=== PATIENT | female | born 1940 | race Caucasian/White ===

== ENCOUNTER 2018-10-03 16:04 | Inpatient (IN) | payer MEDICARE, OTHER ==
[~2018-10-03] VITALS: Ht 157.5 cm; Wt 86.0 kg
[2018-10-03 17:30] VITALS: BP 143/63; PULSE 72; RESP 18
[2018-10-03 18:21] VITALS: Ht 157.5 cm; Wt 86.0 kg
[2018-10-03] MEDS ORDERED: PENDING SANTYL ORDER FOR WOUND CARE XX PRN (18:30)
[2018-10-03] MEDS ORDERED: traMADol 50 MG TAB PO PRN (19:30)
[2018-10-03] MEDS ORDERED: BISACODYL 10 MG SUPP PR PRN (19:30)
[2018-10-03 19:35] VITALS: BP_SYST 130; PULSE 77; RESP 18
[2018-10-03] MEDS: DOCUSATE SODIUM 100 MG CAP PO SCH (20:57)
[2018-10-03] MEDS: SENNA TAB PO SCH (20:57)
[2018-10-03] MEDS: FERROUS SULFATE (EC) 325 MG TAB PO SCH (20:57)
[2018-10-03] MEDS: METOPROLOL 25 MG TAB PO SCH (20:58)
[2018-10-04 02:51] VITALS: BP 150/70; PULSE 88; RESP 18
[2018-10-04 07:00] VITALS: BP 156/59; PULSE 89; RESP 18
[2018-10-04] MEDS: PANTOPRAZOLE (EC) 40 MG TAB PO SCH (07:14)
[2018-10-04] MEDS: HYDROCODONE/APAP (5/325) TAB PO PRN ×2 (08:27→21:06)
[2018-10-04] MEDS: CELECOXIB 100 MG CAP PO SCH (08:27)
[2018-10-04] MEDS: DOCUSATE SODIUM 100 MG CAP PO SCH ×2 (08:27→21:05)
[2018-10-04] MEDS: POLYETHYLENE GLYCOL 17 GM PACKET PO SCH (08:28)
[2018-10-04] MEDS: FERROUS SULFATE (EC) 325 MG TAB PO SCH ×2 (08:28→21:05)
[2018-10-04] MEDS: ENOXAPARIN 30 MG/0.3 ML SYG SC SCH (08:29)
[2018-10-04] MEDS: METOPROLOL 25 MG TAB PO SCH ×2 (08:31→21:05)
[2018-10-04] MEDS ORDERED: CEFTRIAXONE 500 MG in SOD CHLORIDE 0.9% 50 ML IVPB ONE (13:00)
[2018-10-04] MEDS ORDERED: CEFTRIAXONE 500 MG in SOD CHLORIDE 0.9% 50 ML IVPB SCH (13:00)
[2018-10-04] MEDS ORDERED: CEFTRIAXONE 1 GM/50 ML (PMX) 50 ML IVPB ONE (13:00)
[2018-10-04 14:00] VITALS: BP 131/62; PULSE 71; RESP 18
--- NOTE | 2018-10-04 14:08 | CONS ---
DATE OF ADMISSION: 10/03/2018 DATE OF CONSULTATION: 10/04/2018 REHABILITATION POST ADMISSION PHYSICIAN EVALUATION REHABILITATION IMPAIRMENT CATEGORY: Right intertrochanteric hip fracture status post ORIF. ACTIVE COMORBIDITIES: 1. Hypertension. 2. Anemia 3. Chronic Kidney Disease 4. Peripheral Vascular Diseas 5. Acute Pain Syndrome 6. Right buttock DTI and mid sacral moisture related fissure 7. Impairments in self-care and mobility. HISTORY OF PRESENT ILLNESS: The patient is a pleasant 77-year-old female who is status post a mechanical fall with resultant right intertrochanteric hip fracture. The patient did underwent an ORIF. Her hospital course has also been notable for anemia requiring transfusion, acute on chronic kidney injury, acute pain, leukocytosis and skin integrity concerns. She was emperically started on Rocephin. The patient has been stabilized and cleared to transfer to the rehabilitation unit for comprehensive interdisciplinary rehab care. FUNCTIONAL HISTORY: Prior to recent events, she was independent in self-care tasks and mobility. Currently, she requires maximal assist for self-care and mobility tasks. FAMILY AND SOCIAL HISTORY: The patient lives at home and hopes to return there upon discharge. PAST MEDICAL HISTORY: 1. Hypertension. 2. Anemia. CURRENT MEDICATIONS: 1. Protonix 40 mg p.o. daily. 2. Apresoline 25 mg p.o. q.4 hours p.r.n. 3. Lovenox 30 mg subcutaneous daily. 4. Lopressor 25 mg p.o. b.i.d. 5. Colace 100 mg p.o. b.i.d. 6. MiraLax p.r.n. 7. Tramadol p.r.n. 8. [place] p.r.n. 9. Rocephin daily. 10. Celebrex 100 mg p.o. daily. ALLERGIES: THE PATIENT WITH NO KNOWN DRUG ALLERGIES. PHYSICAL EXAMINATION: VITAL SIGNS: The patient is currently afebrile with stable vital signs. HEENT: The extraocular motions are intact. Oropharynx is clear. NECK: Supple. LUNGS: Clear anteriorly. CARDIAC: S1, S2. ABDOMEN: Soft, nontender, positive bowel sounds. Integ: Moisture related fissure mid sacral bi-gluteal fold; Right DTI versus abrasion NEUROLOGIC: She is awake and alert and oriented x3. She demonstrates antigravity strength in bilateral upper extremity and the left lower extremity, dorsiflexion and plantar flexion intact on the right. PLAN: The patient has been admitted for comprehensive interdisciplinary acute rehab and is anticipated to tolerate 3 hours of daily therapy in divided doses for at least 5/7 days a week. Treatment plan will include: 1. Physical therapy to focus on bed mobility, transfers and household ambulation with the goal of having patient reach a standby assist level. 2. Occupational therapy to focus on hygiene, grooming, dressing, bathing and toileting activities with goal of having patient reach standby assist level. 3. Rehabilitation nursing for carryover of therapeutic interventions, the goal of continent of bowel and bladder and the goal of pain adequately managed on oral medications, pressure relief and nutrition education with goal of improved skin integrity. We will monitor her anemia closely, in addition to leukocytosis. ESTIMATED LENGTH OF STAY: 14 days. DISPOSITION GOAL: Home. REHABILITATION BARRIER: Pain. INTERVENTION FOR BARRIER: Interdisciplinary approach. I acknowledge that I performed a full physical examination on this patient within 24 hours of admission to the rehabilitation unit. I believe the patient is a good candidate for comprehensive interdisciplinary rehab care and is anticipated to make reasonable goals in a reasonable period of time as outlined above. Dictated By: RONA MITCHELL/NTS Conf#: [id number] DID#: [id number] CC: MANUEL SOTELO MD;*EndCC* MTDD
[2018-10-04] MEDS: MULTIVITAMINS THERAPEUTIC TAB PO SCH (15:00)
--- NOTE | 2018-10-04 15:56 | HP ---
DATE OF ADMISSION: 10/03/2018 REASON FOR ADMISSION: Rehabilitation status post right hip replacement surgery. HISTORY OF PRESENT ILLNESS: The patient is a 77-year-old female with past medical his tory of hypertension, peripheral vascular disease, osteoarthritis of the knees, CKD, obese state, who unfortunately sustained a ground level fall. She presented to [facility] and a CAT scan confirmed nondisplaced right intertrochanteric fracture. The patient was admitted. The patient was seen by Dr. Mcfadden, the orthopedic doctor. The patient underwent ORIF of the right hip with in tramedullary nailing of the femur bone. The patient is noted to have osteoarthritis especially invol ving the right knee. The patient was started to participate with physical therapy. Postop, she requ ired 2 units of packed red blood cells as she was noted to have a low-grade fever and she was empiric ally started on Rocephin. Because of her limited mobility, still she has a Ng for comfort. The p atient slowly has been improving every day, now was transferred to [facility] acute rehabilitation for ongoing therapy. Upon questioning, the patient denies any chest pain or shortnes s of breath. Denies any issues. She is doing better and she is eating more. PAST MEDICAL HISTORY: Includes hypertension, peripheral vascular disease, CKD, osteoarthritis. PRIMARY CARE PHYSICIAN: Cb Varela MD SOCIAL HISTORY: The patient is a . She has 6 sons. She has been living at home. PAST SURGICAL HISTORY: None. SOCIAL HISTORY: The patient denies tobacco, alcohol or IV drug use. REVIEW OF SYSTEMS: Per HPI. CURRENT MEDICATIONS AT THE HOSPITAL: They include the followin. Lovenox 30 mg subcutaneously daily. 2. MiraLax 17 grams daily. 3. Celebrex 100 daily. 4. Protonix 40 mg daily. 5. Lopressor 25 b.i.d. 6. Colace 100 b.i.d. 7. Senna 1 tab at bedtime. 8. Ferrous sulfate 325 mg b.i.d. 9. Hydralazine p.r.n. 10. Tylenol p.r.n. 11. Dulcolax p.r.n. 12. Ultram p.r.n. 13. [place] p.r.n. 14. Santyl as directed. PHYSICAL EXAMINATION: VITAL SIGNS: Temperature is 98.1, pulse is 89, respirations 18, blood pressure 156/59, saturation 97 % on room air. GENERAL: The patient is in no acute distress, obese. HEENT: Pale. CARDIOVASCULAR: S1, S2. Regular rate. LUNGS: Clear. ABDOMEN: Soft, nontender, overweight. EXTREMITIES: There is trace to +1 nonpitting edema of the lower extremity. GENITOURINARY: Ng to gravity. Noted pictures, she does have a stage II sacral wound on presentat ion. LABORATORY DATA: White count is slightly elevated at 12.6, hemoglobin is 8.1, hematocrit 26, platele t count of 302, neutrophils 62%, lymphs 20% monocytes 2%, eosinophils 5%. Chemistry: Sodium 140, po tassium 5.2, chloride 106, bicarbonate 31, BUN is 28, creatinine 1.03 and glucose of 97. Alkaline ph osphatase 25, total protein 6.1, albumin 3.0. Urine analysis shows negative nitrites or leukocyte es terase. ASSESSMENT AND PLAN: This is a 77-year-old female with history of hypertension, chronic kidney disea se, peripheral vascular disease, peripheral edema, osteoarthritis, presenting with ground level fall, was found to have a right hip fracture. 1. Right hip fracture, status post repair. Continue physical therapy, pain control. Monitor wound site and dressing changes as needed are being provided. Continue incentive spirometer. 2. Hypertension. Continue above blood pressure meds. Titrate medication up to keep normotensive. 3. Continue deep vein thrombosis prophylaxis and gastrointestinal prophylaxis. 4. Anemia with postop blood loss. Transfuse p.r.n. Continue to monitor hemoglobin and hematocrit. There is no evidence of active bleeding. 5. Renal insufficiency. Monitor electrolytes. 6. Stage II decubitus wound, currently with a Ng. Once more ambulatory, remove the Ng. Wound care consult is being provided. 7. Maximum nutrition support. Monitor patient's appetite. 8. Osteoarthritis. Monitor patient's pain before and after physical therapy. 9. Obese state with BMI of 31.2. Weight loss is definitely advised. We will follow closely with yo alem at the acute rehab facility. 10. The patient has been empirically on Rocephin due to fevers postoperatively. We will discontinue antibiotics. Monitor WBC. Monitor fevers. Dictated By: MANUEL GRACIA/NTS Conf#: [id number] DID#: [id number] CC: RONA FLOWERS MD;*End*
[2018-10-04] MEDS: ZINC SULFATE 220 MG CAP PO SCH (17:45)
[2018-10-04] MEDS: ASCORBIC ACID 250 MG TAB PO SCH (17:45)
[2018-10-04] MEDS: FOLIC ACID 1 MG TAB PO SCH (17:45)
[2018-10-04 20:00] VITALS: BP 152/67; PULSE 72; RESP 18
[2018-10-04] MEDS: SENNA TAB PO SCH (21:05)
[2018-10-05] MEDS: HYDROCODONE/APAP (5/325) TAB PO PRN ×3 (01:19→21:01)
[2018-10-05 02:45] VITALS: BP 133/64; PULSE 82; RESP 18
[2018-10-05] MEDS: PANTOPRAZOLE (EC) 40 MG TAB PO SCH (06:29)
[2018-10-05 07:00] VITALS: BP 165/75; PULSE 82; RESP 20
--- NOTE | 2018-10-05 09:37 | PN ---
Date/Time of Note Date/Time of Note DATE: 10/05/18 TIME: 09:36 Subjective Patient with some calf pain this morning Objective Vital Signs Date Temp Pulse Resp B/P (MAP) Pulse Ox O2 O2 Flow FiO2 Time Delivery Rate 10/05/18 98.3 82 20 165/75 100 Room Air 2.0 07:00 (105) Nasal Cannula Intake and Output 10/04/18 10/04/18 10/05/18 1515:00 23:00 07:00 IntakeIntake Total 1500 ml OutputOutput Total 600 ml BalanceBalance 900 ml Exam pulm-cta abd-osft max transfer Results/Medications Result Diagram: 10/04/1837 10/04/18 0737 Medications Current Medications Miscellaneous Information (Pending [facility] Order For Wound Care) This patient walsh... PRN PRN XX WOUND CARE; Start 10/03/18 at 18:30 Pantoprazole (Protonix Tab) 40 mg DAILY@06 PO Last administered on 10/05/18at 06:29; Admin Dose 40 MG; Start 10/04/18 at 06:00 Hydralazine HCl (Apresoline) 25 mg Q4H PRN PO ELEVATED SYSTOLIC BP; Start 10/03/18 at 19:30 Acetaminophen (Tylenol Tab) 650 mg Q4H PRN PO MILD PAIN(1-3)OR ELEVATED TEMP; Start 10/03/18 at 19:30 Enoxaparin Sodium (Lovenox) 30 mg DAILY SC Last administered on 10/04/18at 08:29; Admin Dose 30 MG; Start 10/04/18 at 09:00 Metoprolol Tartrate (Lopressor) 25 mg BID PO Last administered on 10/04/18at 21:05; Admin Dose 25 MG; Start 10/03/18 at 21:00 Docusate Sodium (Colace) 100 mg BID PO Last administered on 10/04/18 21:05; Admin Dose 100 MG; Start 10/03/18 at 21:00 Polyethylene Glycol (Miralax) 17 gm DAILY PO Last administered on 10/04/18at 08:28; Admin Dose 17 GM; Start 10/04/18 at 09:00 Senna (Senokot) 1 tab HS PO Last administered on 10/04/18at 21:05; Admin Dose 1 TAB; Start 10/03/18 at 21:00 Bisacodyl (Dulcolax Supp) 10 mg DAILY PRN [place] CONSTIPATION; Start 10/03/18 at 19:30 Tramadol HCl (Ultram) 50 mg Q4H PRN PO MODERATE PAIN LEVEL 4-6; Start 10/03/18 at 19:30 Acetaminophen/ Hydrocodone Bitart ([place] (5/325)) 1 tab Q4H PRN PO SEVERE PAIN LEVEL 7-10 Last administered on 10/05/18at 07:10; Admin Dose 1 TAB; Start 10/03/18 at 19:30 Celecoxib (Celebrex) 100 mg DAILY PO Last administered on 10/04/18at 08:27; Admin Dose 100 MG; Start 10/04/18 at 09:00 Ferrous Sulfate (Ferrous Sulfate (Ec)) 325 mg BID PO Last administered on 10/04/18at 21:05; Admin Dose 325 MG; Start 10/03/18 at 21:00 Ascorbic Acid (Vitamin C) 250 mg DAILY PO Last administered on 10/04/18at 17:45; Admin Dose 250 MG; Start 10/04/18 at 15:00 Multivitamins Therapeutic (Theragran) 1 tab DAILY PO ; Start 10/04/18 at 15:00 Folic Acid (Folic Acid) 1 mg DAILY PO Last administered on 10/04/18at 17:45; Admin Dose 1 MG; Start 10/04/18 at 15:00 Zinc Sulfate (Zinc Sulfate) 220 mg DAILY PO Last administered on 10/04/18at 17:45; Admin Dose 220 MG; Start 10/04/18 at 15:00 Assessment/Plan Additional Assessment/Plan Rehab- Right intertrochanteric hip fracture status post ORIF. Activities as tolerated Calf Pain- will check venous duplex Hypertension. Anemia Acute on Chronic Kidney Disease Peripheral Vascular Disease Acute Pain Syndrome Right buttock DTI and mid sacral moisture related fissure- offload, increase nutrition RONA FLOWERS MD October 05, 2018 09:37
[2018-10-05] MEDS: FOLIC ACID 1 MG TAB PO SCH (09:56)
[2018-10-05] MEDS: ENOXAPARIN 30 MG/0.3 ML SYG SC SCH (09:56)
[2018-10-05] MEDS: MULTIVITAMINS THERAPEUTIC TAB PO SCH (09:56)
[2018-10-05] MEDS: ZINC SULFATE 220 MG CAP PO SCH (09:56)
[2018-10-05] MEDS: FERROUS SULFATE (EC) 325 MG TAB PO SCH ×2 (09:57→21:01)
[2018-10-05] MEDS: ASCORBIC ACID 250 MG TAB PO SCH (09:57)
[2018-10-05] MEDS: CELECOXIB 100 MG CAP PO SCH (09:57)
[2018-10-05] MEDS: DOCUSATE SODIUM 100 MG CAP PO SCH ×2 (09:57→21:00)
[2018-10-05] MEDS: METOPROLOL 25 MG TAB PO SCH ×2 (09:58→21:01)
[2018-10-05] MEDS: POLYETHYLENE GLYCOL 17 GM PACKET PO SCH (09:58)
[2018-10-05 14:00] VITALS: BP 145/66; PULSE 71; RESP 18
[2018-10-05 19:57] VITALS: BP 142/65; PULSE 79; RESP 18
[2018-10-05] MEDS ORDERED: ZOLPIDEM 5 MG TAB PO PRN (20:00)
--- NOTE | 2018-10-05 20:16 | PN ---
DATE: 10/05/2018 The patient is seen. She was able to stand today. She was complaining of leg pain, so Venous ultras ound of the lower extremity was ordered. Ng to be kept due to some DTI in the sacral area. Case was discussed with nursing staff. PHYSICAL EXAMINATION: VITAL SIGNS: Temperature 98.3, pulse 82, respirations 20, blood pressure 155/75, saturation 100% on 2 liters. GENERAL: No acute distress. The patient is pale, overweight, actually obese. CARDIOVASCULAR: S1, S2 regular. LUNGS: Clear. ABDOMEN: Soft, nontender. EXTREMITIES: No clubbing, cyanosis, or edema. LABORATORY DATA: White count 12.6, hemoglobin 8.1, hematocrit 26 as of yesterday. Potassium was 5.2 , BUN 28, creatinine 1.03. Patient's urine culture, MRSA screening negative. MEDICATIONS: Include: 1. Vitamin C 250 daily. 2. Multivitamin 1 tablet daily. 3. Calcium carbonate daily. 4. Zinc sulfate 20 daily. 5. Lovenox 40 mg subcutaneous daily. 6. MiraLax 17 grams daily. 7. Celebrex 100 mg daily. 8. Protonix 40 mg daily. 9. Lopressor 25 b.i.d. 10. Colace 100 b.i.d. 11. Senna 1 tab at bedtime. 12. Ferrous sulfate 325 b.i.d. 13. Hydralazine p.r.n. 14. Tylenol p.r.n. 15. Dulcolax p.r.n. 16. ____ p.r.n. 17. [place] p.r.n. ASSESSMENT AND PLAN: This is a 77-year-old female with history of hypertension, chronic kidney disea se, peripheral vascular disease, peripheral edema, osteoarthritis, who presented with ground level fa ll, was found to have right hip fracture. 1. Right hip fracture, status post repair. Continue physical therapy, pain control. 2. Sacral wound. Continue Ng and wound care, air mattress bed, offloading. 3. Hypertension. Titrate medication up. Slightly hypertensive today. 4. Continue deep venous thrombosis prophylaxis with Lovenox. We will increase the dose from 30 to 4 0. Her kidney function has improved. 5. Anemia. Monitor hemoglobin and hematocrit. Iron supplements will be given. Transfuse p.r.n. 6. Renal insufficiency. Monitor electrolytes. 7. Maximize nutrition support. Family are bringing food from the outside. 8. Osteoarthritis. Continue pain control and physical therapy. 9. Obese state with body mass index of 31.2, weight loss otherwise is advised. 10. Status post treatment for postop fever or leukocytosis. The patient now afebrile, nontoxic look ing. We will follow up fever curve. Monitor WBC. 11. Continue Protonix for gastrointestinal prophylaxis. 12. Continue stool softeners. 13. We will follow. Dictated By: MANUEL GRACIA/NTS Conf#: [id number] DID#: [id number] CC: RONA FLOWERS MD;*End*
[2018-10-05] MEDS: SENNA TAB PO SCH (21:00)
[2018-10-06 02:00] VITALS: BP 134/62; PULSE 75; RESP 18
[2018-10-06] MEDS: ACETAMINOPHEN 325 MG TAB PO PRN (02:09)
[2018-10-06] MEDS: PANTOPRAZOLE (EC) 40 MG TAB PO SCH (05:43)
[2018-10-06 07:00] VITALS: BP 177/70; PULSE 70; RESP 18
[2018-10-06] MEDS: FOLIC ACID 1 MG TAB PO SCH (09:33)
[2018-10-06] MEDS: ZINC SULFATE 220 MG CAP PO SCH (09:33)
[2018-10-06] MEDS: ASCORBIC ACID 250 MG TAB PO SCH (09:33)
[2018-10-06] MEDS: POLYETHYLENE GLYCOL 17 GM PACKET PO SCH (09:33)
[2018-10-06] MEDS: CELECOXIB 100 MG CAP PO SCH (09:34)
[2018-10-06] MEDS: MULTIVITAMINS THERAPEUTIC TAB PO SCH (09:34)
[2018-10-06] MEDS: METOPROLOL 25 MG TAB PO SCH ×2 (09:34→20:53)
[2018-10-06] MEDS: FERROUS SULFATE (EC) 325 MG TAB PO SCH ×2 (09:34→20:54)
[2018-10-06] MEDS: DOCUSATE SODIUM 100 MG CAP PO SCH ×2 (09:34→20:54)
[2018-10-06] MEDS: ENOXAPARIN 40 MG/0.4 ML SYG SC SCH (09:35)
[2018-10-06 10:45] VITALS: BP 188/81; PULSE 70; RESP 18
[2018-10-06 14:00] VITALS: BP 133/56; RESP 18
[2018-10-06] MEDS: AMLODIPINE 5 MG TAB PO SCH (17:31)
--- NOTE | 2018-10-06 17:42 | PN ---
DATE: 10/06/2018 SUBJECTIVE: The patient was seen. Per nursing staff, the patient did receive Ambien for insomnia, b ut she did not tolerated it well as she got confused today. The patient also had a brief vomiting. Not feeling well. The patient with no complaints. Blood pressure is always high. Hydralazine x1 wa s given, but we will hold amlodipine as well routinely. PHYSICAL EXAMINATION: VITAL SIGNS: Temperature 99.6 earlier this morning, pulse 70, respirations 18, blood pressure 188/81 , saturation 97% on 2 liters. GENERAL: In no acute distress. HEENT: The patient is pale. CARDIOVASCULAR: S1, S2. Regular rate. LUNGS: Clear. ABDOMEN: Soft. Bowel movement is yesterday large. EXTREMITIES: No clubbing, cyanosis or edema. LABORATORY DATA: White count 11.1, hemoglobin is low at 7.8, hematocrit 25, platelet count of 334, n eutrophils 47%, lymphs 55%, bands of 6%. Sodium 140, potassium 5.4, chloride 104, bicarbonate 32, BU N 22, creatinine 1.0, glucose of 98. Urinalysis is essentially negative here. Urine culture and MRS A screening are negative. MEDICATIONS: Include: 1. Norvasc 5 mg daily. 2. Lovenox 40 mg subcutaneously daily. 3. Ambient p.r.n. We will discontinue it. 4. Vitamin C 250 daily. 5. Multivitamin 1 tab daily. 6. Folic acid 1 mg daily. 7. Zinc sulfate 220 daily. 8. MiraLax 17 grams daily. 9. Celebrex 100 daily. 10. Protonix 40 mg daily. 11. Lopressor 25 b.i.d. 12. Colace 100 b.i.d. 13. Senna as directed. 14. Ferrous sulfate 325 b.i.d. 15. Hydralazine p.r.n. 16. Tylenol p.r.n. 17. Dulcolax. 18. Ultram p.r.n. 19. [place] p.r.n. ASSESSMENT AND PLAN: This is a 77-year-old female with history of hypertension, chron ic kidney disease, peripheral vascular disease, peripheral edema, osteoarthritis, status post ground level fall, was found to have right hip fracture. 1. Right hip fracture, status post repair. Continue physical therapy, pain control, incentive levy meter. 2. Anemia postop. Continue iron supplements. May consider transfusion. 3. Low grade fever. Observe. Monitor for bands and WBC. May consider empiric antibiotics if this persists with cultures and chest x-ray and urine studies. For now, observe [facility]. 4. Insomnia. Discontinue Ambien. May continue trazodone. 5. Hypertension. Add amlodipine to above regimen. 6. Continue deep venous thrombosis prophylaxis with Lovenox. Lower extremity venous ultrasound was negative for deep venous thrombosis. 7. Maximum nutrition support. 8. Renal insufficiency. Monitor electrolytes. 9. Osteoarthritis, on Celebrex. 10. Continue PPI for gastrointestinal prophylaxis and Lovenox for deep venous thrombosis prophylaxis . 11. Continue stool softener. Last bowel movement was yesterday which was a large bowel movement. 12. Continue to follow up labs daily. Continue to monitor progress. Dictated By: MANUEL GRACIA/EMMA Conf#: [id number] DID#: [id number] CC: RONA FLOWERS MD;*EndCC*
[2018-10-06 20:00] VITALS: BP 146/70; PULSE 77; RESP 18
[2018-10-06] MEDS: traZODone 50 MG TAB PO SCH (20:54)
[2018-10-06] MEDS: SENNA TAB PO SCH (20:54)
[2018-10-07 02:09] VITALS: BP 162/74; PULSE 76; RESP 18
[2018-10-07 05:00] VITALS: BP 157/75; PULSE 74
[2018-10-07] MEDS: PANTOPRAZOLE (EC) 40 MG TAB PO SCH (06:22)
[2018-10-07 07:30] VITALS: BP 138/77; PULSE 75; RESP 18
[2018-10-07] MEDS: MULTIVITAMINS THERAPEUTIC TAB PO SCH (08:58)
[2018-10-07] MEDS: FERROUS SULFATE (EC) 325 MG TAB PO SCH ×2 (08:58→20:59)
[2018-10-07] MEDS: ASCORBIC ACID 250 MG TAB PO SCH (08:58)
[2018-10-07] MEDS: ZINC SULFATE 220 MG CAP PO SCH (08:58)
[2018-10-07] MEDS: FOLIC ACID 1 MG TAB PO SCH (08:58)
[2018-10-07] MEDS: DOCUSATE SODIUM 100 MG CAP PO SCH ×2 (08:58→21:00)
[2018-10-07] MEDS: METOPROLOL 25 MG TAB PO SCH ×2 (08:59→21:00)
[2018-10-07] MEDS: AMLODIPINE 5 MG TAB PO SCH (08:59)
[2018-10-07] MEDS: POLYETHYLENE GLYCOL 17 GM PACKET PO SCH (09:00)
[2018-10-07] MEDS: ENOXAPARIN 40 MG/0.4 ML SYG SC SCH (09:05)
[2018-10-07] MEDS: HYDROCODONE/APAP (5/325) TAB PO PRN (10:28)
--- NOTE | 2018-10-07 10:51 | PN ---
Date/Time of Note Date/Time of Note DATE: 10/07/18 TIME: 10:50 Subjective Feeling better Objective Vital Signs Date Temp Pulse Resp B/P (MAP) Pulse Ox O2 O2 Flow FiO2 Time Delivery Rate 10/07/18 98.3 75 18 138/77 97 Room Air 07:30 (97) 10/06/18 2.0 22:39 Intake and Output 10/06/18 10/06/18 10/07/18 1515:00 23:00 07:00 IntakeIntake Total 90 ml 1200 ml 200 ml OutputOutput Total 600 ml 1100 ml BalanceBalance 90 ml 600 ml -900 ml Exam pulm-cta max transfer Results/Medications Result Diagram: 10/07/1818 10/07/18 0618 Results 24 hrs Laboratory Tests Test 10/07/18 06:18 White Blood Count 11.7 H Red Blood Count 2.74 L Hemoglobin 8.2 L Hematocrit 26.1 L Mean Corpuscular Volume 95.3 Mean Corpuscular Hemoglobin 29.9 Mean Corpuscular Hemoglobin Concent 31.4 L Red Cell Distribution Width 13.5 Platelet Count 380 Mean Platelet Volume 10.4 Immature Granulocytes % 8.400 H Neutrophils % Segmented Neutrophils % (Manual) 54 Lymphocytes % Lymphocytes % (Manual) 34 Reactive Lymphocytes % (Manual) 1 H Monocytes % Monocytes % (Manual) 3 Eosinophils % Eosinophils % (Manual) 2 Basophils % Basophils % (Manual) 3 H Myelocytes % (Manual) 3 H Nucleated Red Blood Cells % 1 H Immature Granulocytes # 0.990 H Neutrophils # Lymphocytes (Manual) 3.9 H Lymphocytes # Reactive Lymphocytes # 0.1 H Monocytes # Monocytes # (Manual) 0.3 Eosinophils # Basophils # Basophils # (Manual) 0.3 H Myelocytes # 0.3 H Nucleated Red Blood Cells # Platelet Estimate NORMAL Giant Platelets 1 H Sodium Level 141 Potassium Level 4.3 Chloride Level 104 Carbon Dioxide Level 33 H Anion Gap 4 L Blood Urea Nitrogen 16 Creatinine 0.96 Est Glomerular Filtrat Rate mL/min Glucose Level 94 Calcium Level 9.4 Phosphorus Level 4.3 Magnesium Level 1.7 Total Bilirubin 0.9 Direct Bilirubin 0.00 Indirect Bilirubin 0.9 Aspartate Amino Transf (AST/SGOT) 40 Alanine Aminotransferase (ALT/SGPT) 30 Alkaline Phosphatase 32 L Total Protein 6.0 L Albumin 2.9 L Globulin 3.10 Albumin/Globulin Ratio 0.93 Medications Current Medications Miscellaneous Information (Pending Santyl Order For Wound Care) This patient walsh... PRN PRN XX WOUND CARE; Start 10/03/18 at 18:30 Pantoprazole (Protonix Tab) 40 mg DAILY@06 PO Last administered on 10/07/18 06 :22; Admin Dose 40 MG; Start 10/04/18 at 06:00 Hydralazine HCl (Apresoline) 25 mg Q4H PRN PO ELEVATED SYSTOLIC BP Last administered on 10/06/18 12:00; Admin Dose 25 MG; Start 10/03/18 at 19:30 Acetaminophen (Tylenol Tab) 650 mg Q4H PRN PO MILD PAIN(1-3)OR ELEVATED TEMP Last administered on 10/06/18 02:09; Admin Dose 650 MG; Start 10/03/18 at 19:30 Metoprolol Tartrate (Lopressor) 25 mg BID PO Last administered on 10/07/18 08:59; Admin Dose 25 MG; Start 10/03/18 at 21:00 Docusate Sodium (Colace) 100 mg BID PO Last administered on 10/06/18 09:34; Admin Dose 100 MG; Start 10/03/18 at 21:00 Polyethylene Glycol (Miralax) 17 gm DAILY PO Last administered on 10/06/18 09:33; Admin Dose 17 GM; Start 10/04/18 at 09:00 Senna (Senokot) 1 tab HS PO Last administered on 10/04/18 21:05; Admin Dose 1 TAB; Start 10/03/18 at 21:00 Bisacodyl (Dulcolax Supp) 10 mg DAILY PRN [place] CONSTIPATION; Start 10/03/18 at 19:30 Tramadol HCl (Ultram) 50 mg Q4H PRN PO MODERATE PAIN LEVEL 4-6; Start 10/03/18 at 19:30 Acetaminophen/ Hydrocodone Bitart ([place] (5/325)) 1 tab Q4H PRN PO SEVERE PAIN LEVEL 7-10 Last administered on 10/07/18 10:28; Admin Dose 1 TAB; Start 10/03/18 at 19:30 Ferrous Sulfate (Ferrous Sulfate (Ec)) 325 mg BID PO Last administered on 10/07/18 08:58; Admin Dose 325 MG; Start 10/03/18 at 21:00 Ascorbic Acid (Vitamin C) 250 mg DAILY PO Last administered on 10/07/18 08:58; Admin Dose 250 MG; Start 10/04/18 at 15:00 Multivitamins Therapeutic (Theragran) 1 tab DAILY PO Last administered on 10/07/18 08:58; Admin Dose 1 TAB; Start 10/04/18 at 15:00 Folic Acid (Folic Acid) 1 mg DAILY PO Last administered on 10/07/18 08:58; Admin Dose 1 MG; Start 10/04/18 at 15:00 Zinc Sulfate (Zinc Sulfate) 220 mg DAILY PO Last administered on 10/07/18 08:58; Admin Dose 220 MG; Start 10/04/18 at 15:00 Enoxaparin Sodium (Lovenox) 40 mg DAILY SC Last administered on 10/07/18 09:05; Admin Dose 40 MG; Start 10/06/18 at 09:00 Amlodipine Besylate (Norvasc) 5 mg DAILY PO Last administered on 10/07/18 08:59; Admin Dose 5 MG; Start 10/06/18 at 16:30 Trazodone HCl (Desyrel) 25 mg QHS PO Last administered on 10/06/18 20:54; Admin Dose 25 MG; Start 10/06/18 at 21:00 Assessment/Plan Additional Assessment/Plan Rehab- Right intertrochanteric hip fracture status post ORIF. Continue current treatment plan Hypertension. Anemia Acute on Chronic Kidney Disease Peripheral Vascular Disease Acute Pain Syndrome Right buttock DTI and mid sacral moisture related fissure- offload, increase nutrition RONA FLOWERS MD October 07, 2018 10:51
[2018-10-07 14:00] VITALS: BP 121/58; PULSE 73; RESP 18
--- NOTE | 2018-10-07 19:39 | PN ---
DATE: 10/07/2018 SUBJECTIVE: The patient is seen, appears to be more alert and comfortable. Currently denies any yosvany n. The patient has difficulty participating with physical therapy, but hopefully this will improve. PHYSICAL EXAMINATION: VITAL SIGNS: Temperature 98.4, pulse 72, respirations 18, blood pressure 120/58, saturation 97%. GENERAL: No acute distress, pale. CARDIOVASCULAR: S1, S2, regular rate. LUNGS: Clear. ABDOMEN: Soft, distended. EXTREMITIES: Trace edema in lower extremities. LABORATORY DATA: White count 11.7, hemoglobin 8.2, hematocrit 26, platelet count 380, neutrophils 54 %, lymphocytes 34%, reactive lymphocytes 1%. Chemistry: Sodium 141, potassium 4.3, chloride 104, bi carbonate 33, BUN 16, creatinine 0.96, albumin low at 2.9. Urinalysis on admission negative. Cultur es of the urine and MRSA screening negative. MEDICATIONS: 1. Desyrel. 2. Trazodone 25 at bedtime. 3. Norvasc 5 mg daily. 4. Lovenox 40 mg subcutaneous daily. 5. Vitamin C 250 daily. 6. Multivitamin 100 daily. 7. Folic acid 1 mg daily. 8. Zinc sulfate 20 daily. 9. MiraLax 17 grams daily. 10. Protonix 40 mg daily. 11. Lopressor 25 b.i.d. 12. Colace 100 b.i.d. 13. Senna 1 tab at bedtime. 14. Ferrous sulfate 325 b.i.d. 15. Hydralazine p.r.n. 16. Tylenol p.r.n. 17. Bisacodyl as directed. 18. Ultram. 19. [place]. ASSESSMENT AND PLAN: A 77-year-old female with history of hypertension, chronic kidne y disease, peripheral vascular disease, peripheral edema, osteoarthritis, status post ground level fa , was found to have right hip fracture. 1. Right hip fracture, status post repair of the intramedullary andrés placement. Continue physical th erapy, pain control. 2. Deep tissue injury of the sacrum. Remains on Ng. Wound care is provided. Continue vitamins. 3. Anemia. Continue iron supplements. H and H remain stable. No need for transfusion for now. 4. Mild leukocytosis. Observe. Culture as needed. Currently asymptomatic. 5. Insomnia, on trazodone. 6. Hypertension. Continue above medications. Blood pressure is better controlled. 7. Deep venous thrombosis. Continue deep vein thrombosis prophylaxis and gastrointestinal prophylax is. 8. Maximize nutrition support. The patient has mild to moderate protein malnutrition. 9. Renal insufficiency. Monitor electrolytes. 10. Osteoarthritis. Discontinue the Celebrex due to risks that I am concerned of. 11. Continue PPI. Monitor mood, p.o. intake and overall progress. Overall remains medically stable . We will follow. Dictated By: MANUEL GRACIA/EMMA Conf#: [id number] DID#: [id number] CC: RONA FLOWERS MD;*EndCC*
[2018-10-07 20:00] VITALS: BP 165/70; PULSE 82; RESP 18
[2018-10-07] MEDS: traZODone 50 MG TAB PO SCH (20:59)
[2018-10-07] MEDS: SENNA TAB PO SCH (21:00)
[2018-10-07] MEDS: ACETAMINOPHEN 325 MG TAB PO PRN (21:55)
[2018-10-08 02:15] VITALS: BP 127/59; PULSE 69; RESP 18
[2018-10-08] MEDS: PANTOPRAZOLE (EC) 40 MG TAB PO SCH (05:31)
[2018-10-08 07:00] VITALS: BP 140/64; PULSE 70; RESP 18
[2018-10-08] MEDS: DOCUSATE SODIUM 100 MG CAP PO SCH ×2 (07:45→21:00)
[2018-10-08] MEDS: POLYETHYLENE GLYCOL 17 GM PACKET PO SCH (07:46)
[2018-10-08] MEDS: ACETAMINOPHEN 325 MG TAB PO PRN ×2 (08:13→21:46)
[2018-10-08] MEDS: FOLIC ACID 1 MG TAB PO SCH (08:14)
[2018-10-08] MEDS: ASCORBIC ACID 250 MG TAB PO SCH (08:14)
[2018-10-08] MEDS: MULTIVITAMINS THERAPEUTIC TAB PO SCH (08:14)
[2018-10-08] MEDS: METOPROLOL 25 MG TAB PO SCH ×2 (08:14→21:48)
[2018-10-08] MEDS: FERROUS SULFATE (EC) 325 MG TAB PO SCH ×2 (08:14→21:46)
[2018-10-08] MEDS: ZINC SULFATE 220 MG CAP PO SCH (08:14)
[2018-10-08] MEDS: AMLODIPINE 5 MG TAB PO SCH (08:15)
[2018-10-08] MEDS: ENOXAPARIN 40 MG/0.4 ML SYG SC SCH (08:16)
--- NOTE | 2018-10-08 13:51 | PN ---
Date/Time of Note Date/Time of Note DATE: 10/08/18 TIME: 13:51 Subjective Pain improving Objective Vital Signs Date Temp Pulse Resp B/P (MAP) Pulse Ox O2 O2 Flow FiO2 Time Delivery Rate 10/08/18 98.0 70 18 140/64 92 Room Air 07:00 (89) 10/08/18 2.0 01:31 Intake and Output 10/07/18 10/07/18 10/08/18 1515:00 23:00 07:00 IntakeIntake Total 100 ml 1180 ml OutputOutput Total 860 ml 750 ml BalanceBalance 100 ml 320 ml -750 ml Exam pulm-cta abd-soft max transfer Results/Medications Result Diagram: 10/07/1861710/07/18617 Medications Current Medications Miscellaneous Information (Pending [facility] Order For Wound Care) This patient walsh... PRN PRN XX WOUND CARE; Start 10/03/18 at 18:30 Pantoprazole (Protonix Tab) 40 mg DAILY@06 PO Last administered on 10/08/18at 05:31; Admin Dose 40 MG; Start 10/04/18 at 06:00 Hydralazine HCl (Apresoline) 25 mg Q4H PRN PO ELEVATED SYSTOLIC BP Last administered on 10/06/18at 12:00; Admin Dose 25 MG; Start 10/03/18 at 19:30 Acetaminophen (Tylenol Tab) 650 mg Q4H PRN PO MILD PAIN(1-3)OR ELEVATED TEMP Last administered on 10/08/18at 08:13; Admin Dose 650 MG; Start 10/03/18 at 19:30 Metoprolol Tartrate (Lopressor) 25 mg BID PO Last administered on 10/08/18at 08:14; Admin Dose 25 MG; Start 10/03/18 at 21:00 Docusate Sodium (Colace) 100 mg BID PO Last administered on 10/06/18 09:34; Admin Dose 100 MG; Start 10/03/18 at 21:00 Polyethylene Glycol (Miralax) 17 gm DAILY PO Last administered on 10/06/18 09:33; Admin Dose 17 GM; Start 10/04/18 at 09:00 Senna (Senokot) 1 tab HS PO Last administered on 10/04/18at 21:05; Admin Dose 1 TAB; Start 10/03/18 at 21:00 Bisacodyl (Dulcolax Supp) 10 mg DAILY PRN [place] CONSTIPATION; Start 10/03/18 at 19:30 Tramadol HCl (Ultram) 50 mg Q4H PRN PO MODERATE PAIN LEVEL 4-6; Start 10/03/18 at 19:30 Acetaminophen/ Hydrocodone Bitart ([place] (5/325)) 1 tab Q4H PRN PO SEVERE PAIN LEVEL 7-10 Last administered on 10/07/18 10:28; Admin Dose 1 TAB; Start 10/03/18 at 19:30 Ferrous Sulfate (Ferrous Sulfate (Ec)) 325 mg BID PO Last administered on 10/08/18 08:14; Admin Dose 325 MG; Start 10/03/18 at 21:00 Ascorbic Acid (Vitamin C) 250 mg DAILY PO Last administered on 10/08/18 08:14; Admin Dose 250 MG; Start 10/04/18 at 15:00 Multivitamins Therapeutic (Theragran) 1 tab DAILY PO Last administered on 10/08/18 08:14; Admin Dose 1 TAB; Start 10/04/18 at 15:00 Folic Acid (Folic Acid) 1 mg DAILY PO Last administered on 10/08/18 08:14; Admin Dose 1 MG; Start 10/04/18 at 15:00 Zinc Sulfate (Zinc Sulfate) 220 mg DAILY PO Last administered on 10/08/18 08:14; Admin Dose 220 MG; Start 10/04/18 at 15:00 Enoxaparin Sodium (Lovenox) 40 mg DAILY SC Last administered on 10/08/18 08:16; Admin Dose 40 MG; Start 10/06/18 at 09:00 Amlodipine Besylate (Norvasc) 5 mg DAILY PO Last administered on 10/08/18 08:15; Admin Dose 5 MG; Start 10/06/18 at 16:30 Trazodone HCl (Desyrel) 25 mg QHS PO Last administered on 10/07/18 20:59; Admin Dose 25 MG; Start 10/06/18 at 21:00 Assessment/Plan Additional Assessment/Plan Rehab- Right IT hip fracture Continue rehab program HTN CKD PVD RONA FLOWERS MD October 08, 2018 13:51
[2018-10-08 14:00] VITALS: BP 142/64; PULSE 68; RESP 18
--- NOTE | 2018-10-08 17:56 | PN ---
DATE: 10/08/2018 SUBJECTIVE: The patient was seen, appears to be comfortable. Unfortunately, he complained of weakne ss and difficulty participating with physical therapy. Difficult to stand or even being in a wheelch air. Case was discussed with nursing staff. Overall, the patient looks comfortable. PHYSICAL EXAMINATION: VITAL SIGNS: Temperature 98.3, pulse 60, respirations 18, blood pressure 142/64, saturation 95% on 2 L. GENERAL: The patient is in no acute distress. Normocephalic, atraumatic, slightly pale. CARDIOVASCULAR: S1, S2, regular rate. LUNGS: Clear. ABDOMEN: Soft. EXTREMITIES: No clubbing or peripheral edema. LABORATORY DATA: White count 11.7, hemoglobin 8.2, hematocrit 26, platelets 380, neutrophils 54%, eo sinophils 34%. Chemistry: Sodium 141, potassium 4.3, chloride 104, bicarbonate 33, BUN is 16, creat inine 0.96, glucose of 94. MEDICATIONS: Include: 1. Trazodone 25 mg at bedtime. 2. Amlodipine 5 mg daily. 3. Lovenox 40 mg daily. 4. Vitamin C 250 daily. 5. Multivitamin daily. 6. Folic acid 1 mg daily. 7. Zinc sulfate 220 daily. 8. MiraLax 17 g daily. 9. Protonix 40 mg daily. 10. Lopressor 25 b.i.d. 11. Colace 100 b.i.d. 12. Senna as directed. 13. Silver Silvad[place] b.i.d. 13. Hydralazine p.r.n. 14. ____. 15. ____. 16. [place] p.r.n. ASSESSMENT AND PLAN: This is an unfortunate 77-year-old female with history of hypert ension, CKD, peripheral vascular disease, peripheral edema, osteoarthritis, status post ground level fall, was found to have right hip fracture. 1. Right hip fracture, status post repair. Continue physical therapy, pain control. 2. Anemia. Monitor hemoglobin and hematocrit. No further drop in the hemoglobin. Iron supplements are being provided. 3. Ng remains in place due to the patient's decubitus wound. 4. Mild leukocytosis. Observe off antibiotics. Monitor for any evidence of infection. 5. Insomnia, on trazodone. 6. Hypertension. Continue above medications. 7. Continue deep venous thrombosis prophylaxis with Lovenox and Protonix for GI prophylaxis. 8. Maximize nutrition support. Family is bringing food from the outside. 9. Renal insufficiency. Monitor electrolytes. 10. Osteoarthritis. Pain control. We will follow closely. Hopefully, the patient would participat e more with physical therapy. Dictated By: MANUEL GRACIA/EMMA Conf#: [id number] DID#: [id number] CC: MANUEL SOTELO MD; MARY FLOWERS MD;*EndCC*
[2018-10-08 20:00] VITALS: BP 143/64; PULSE 84; RESP 18
[2018-10-08] MEDS: SENNA TAB PO SCH (21:00)
[2018-10-08] MEDS: traZODone 50 MG TAB PO SCH (21:46)
[2018-10-09 02:00] VITALS: BP 137/65; PULSE 69; RESP 18
[2018-10-09] MEDS: PANTOPRAZOLE (EC) 40 MG TAB PO SCH (06:27)
[2018-10-09 07:00] VITALS: BP 142/64; PULSE 69; RESP 18
[2018-10-09] MEDS: FOLIC ACID 1 MG TAB PO SCH (08:56)
[2018-10-09] MEDS: FERROUS SULFATE (EC) 325 MG TAB PO SCH ×2 (08:56→22:11)
[2018-10-09] MEDS: ZINC SULFATE 220 MG CAP PO SCH (08:56)
[2018-10-09] MEDS: MULTIVITAMINS THERAPEUTIC TAB PO SCH (08:56)
[2018-10-09] MEDS: AMLODIPINE 5 MG TAB PO SCH (08:56)
[2018-10-09] MEDS: METOPROLOL 25 MG TAB PO SCH ×2 (08:56→22:08)
[2018-10-09] MEDS: DOCUSATE SODIUM 100 MG CAP PO SCH ×2 (08:57→21:00)
[2018-10-09] MEDS: POLYETHYLENE GLYCOL 17 GM PACKET PO SCH (08:58)
[2018-10-09] MEDS: ENOXAPARIN 40 MG/0.4 ML SYG SC SCH (09:07)
[2018-10-09] MEDS: ASCORBIC ACID 250 MG TAB PO SCH (09:28)
[2018-10-09 14:00] VITALS: BP 148/63; PULSE 74; RESP 18
--- NOTE | 2018-10-09 17:49 | PN ---
Date/Time of Note Date/Time of Note DATE: 10/09/18 TIME: 17:48 Subjective RN noted some slight serosanguanous drainage from incision Objective Vital Signs Date Temp Pulse Resp B/P (MAP) Pulse Ox O2 O2 Flow FiO2 Time Delivery Rate 10/09/18 98.4 74 18 148/63 99 Room Air 14:00 (91) 10/09/18 2.0 08:08 Intake and Output 10/08/18 10/08/18 10/09/18 1515:00 23:00 07:00 IntakeIntake Total 1840 ml OutputOutput Total 800 ml 750 ml BalanceBalance 1040 ml -750 ml Exam pulm-cta abd-soft incision- slight clear drainage from superior aspect of wound max transfer Results/Medications Result Diagram: 10/07/1861710/07/18617 Medications Current Medications Miscellaneous Information (Pending [facility] Order For Wound Care) This patient walsh... PRN PRN XX WOUND CARE; Start 10/03/18 at 18:30 Pantoprazole (Protonix Tab) 40 mg DAILY@06 PO Last administered on 10/09/18at 06:27; Admin Dose 40 MG; Start 10/04/18 at 06:00 Hydralazine HCl (Apresoline) 25 mg Q4H PRN PO ELEVATED SYSTOLIC BP Last administered on 10/06/18 12:00; Admin Dose 25 MG; Start 10/03/18 at 19:30 Acetaminophen (Tylenol Tab) 650 mg Q4H PRN PO MILD PAIN(1-3)OR ELEVATED TEMP Last administered on 10/08/18 21:46; Admin Dose 650 MG; Start 10/03/18 at 19:30 Metoprolol Tartrate (Lopressor) 25 mg BID PO Last administered on 10/09/18 08:56; Admin Dose 25 MG; Start 10/03/18 at 21:00 Docusate Sodium (Colace) 100 mg BID PO Last administered on 10/06/18 09:34; Admin Dose 100 MG; Start 10/03/18 at 21:00 Polyethylene Glycol (Miralax) 17 gm DAILY PO Last administered on 10/06/18 09:33; Admin Dose 17 GM; Start 10/04/18 at 09:00 Senna (Senokot) 1 tab HS PO Last administered on 10/04/18 21:05; Admin Dose 1 TAB; Start 10/03/18 at 21:00 Bisacodyl (Dulcolax Supp) 10 mg DAILY PRN [place] CONSTIPATION; Start 10/03/18 at 19:30 Tramadol HCl (Ultram) 50 mg Q4H PRN PO MODERATE PAIN LEVEL 4-6; Start 10/03/18 at 19:30 Acetaminophen/ Hydrocodone Bitart ([place] (5/325)) 1 tab Q4H PRN PO SEVERE PAIN LEVEL 7-10 Last administered on 10/07/18 10:28; Admin Dose 1 TAB; Start 10/03/18 at 19:30 Ferrous Sulfate (Ferrous Sulfate (Ec)) 325 mg BID PO Last administered on 10/09/18 08:56; Admin Dose 325 MG; Start 10/03/18 at 21:00 Ascorbic Acid (Vitamin C) 250 mg DAILY PO Last administered on 10/09/18 09:28; Admin Dose 250 MG; Start 10/04/18 at 15:00 Multivitamins Therapeutic (Theragran) 1 tab DAILY PO Last administered on 09/12 08:56; Admin Dose 1 TAB; Start 10/04/18 at 15:00 Folic Acid (Folic Acid) 1 mg DAILY PO Last administered on 10/09/18 08:56; Admin Dose 1 MG; Start 10/04/18 at 15:00 Zinc Sulfate (Zinc Sulfate) 220 mg DAILY PO Last administered on 10/09/18 08:56; Admin Dose 220 MG; Start 10/04/18 at 15:00 Enoxaparin Sodium (Lovenox) 40 mg DAILY SC Last administered on 10/09/18 09:07; Admin Dose 40 MG; Start 10/06/18 at 09:00 Amlodipine Besylate (Norvasc) 5 mg DAILY PO Last administered on 10/09/18 08:56; Admin Dose 5 MG; Start 10/06/18 at 16:30 Trazodone HCl (Desyrel) 25 mg QHS PO Last administered on 10/08/18 21:46; Admin Dose 25 MG; Start 10/06/18 at 21:00 Assessment/Plan Additional Assessment/Plan Rehab- Right intertrochanteric hip fracture status post ORIF. Continue rehab activities. Incision- likely with fluid mobilization. Will check cbc Hypertension. Anemia Acute on Chronic Kidney Disease Peripheral Vascular Disease Acute Pain Syndrome Right buttock DTI and mid sacral moisture related fissure- offload, increase nutrition RONA FLOWERS MD October 09, 2018 17:49
[2018-10-09] MEDS: FUROSEMIDE 20 MG TAB PO SCH (18:55)
--- NOTE | 2018-10-09 19:47 | PN ---
DATE: 10/09/2018 SUBJECTIVE: The patient is seen. Case discussed with nursing staff. The patient has mild serosangu ineous discharge from the right hip from the suture site, but overall, the patient has been afebrile. We will follow up with CBC and obtain cultures and based on that, we will decide if she needs antib iotics. Overall, clinically, patient looks well. Participating more with physical therapy. Family is at bedside. Case was discussed. PHYSICAL EXAMINATION: VITAL SIGNS: Temperature 98.3, pulse 84, respirations 18, blood pressure 140/64, saturation 97% on 2 liters. GENERAL: No acute distress. HEENT: Normocephalic, atraumatic. Pale. CARDIOVASCULAR: S1, S2, regular rate. LUNGS: Clear. ABDOMEN: Soft. EXTREMITIES: Trace edema of the lower extremity, more in the thighs. LABORATORY DATA: White count of 11.7, hemoglobin 8.2, hematocrit 26, platelet count was 280. This w as done on 10/07. Chemistry: Sodium 141, potassium 4.3, chloride 104, bicarbonate 33, BUN is 16, cr eatinine 0.96 and glucose of 94. Albumin is 2.9. Urine culture and MRSA screening was negative. MEDICATIONS: Include: 1. Trazodone 25 at bedtime. 2. Norvasc 5 mg daily. 3. Lovenox 40 mg daily. 4. Vitamin C 250 daily. 5. Multivitamin 2 daily. 6. Folic acid 1 mg daily. 7. Zinc sulfate 220 mg daily. 8. MiraLax 17 grams daily. 9. Protonix 40 mg daily. 10. Lopressor 25 b.i.d. 11. Colace 100 b.i.d. 12. Senna 1 tab at bedtime. 13. Ferrous sulfate 325 b.i.d. 14. Hydralazine 25 p.r.n. 15. Tylenol p.r.n. 16. Dulcolax p.r.n. 17. Ultram p.r.n. 18. [place] p.r.n. ASSESSMENT AND PLAN: This is a 77-year-old female with history of hypertension, chron ic kidney disease, peripheral vascular disease, peripheral edema, osteoarthritis, status post ground level fall, was found to have a right hip fracture. 1. Right hip fracture, status post repair. Continue physical therapy, pain control. 2. Right hip wounds. Post-surgical site obtain cultures. We will obtain CBC. Monitor for fevers, monitor WBC. If any of that is elevated, the patient will be started on antibiotics. 3. Anemia. Continue to monitor H and H. Iron supplements are being provided. Transfuse p.r.n. 4. Hypertension. Continue above meds. Continue deep vein thrombosis prophylaxis and gastrointestin al prophylaxis. 5. Maximum nutrition support. The patient is eating more. 6. Renal insufficiency. Monitor renal function. 7. Osteoarthritis. Pain control. 8. May consider low dose Lasix as the patient also was taking that prior to surgery. We will follow patient's progress. Again, continue wound care per labor specialist care. Dictated By: MANUEL GRACIA/EMMA Conf#: [id number] DID#: [id number]
[2018-10-09] MEDS ORDERED: VANCOMYCIN IV PER PHARMACY XX SCH (21:00)
[2018-10-09] MEDS: SENNA TAB PO SCH (21:00)
[2018-10-09 22:06] VITALS: BP 130/60; PULSE 80; RESP 18
[2018-10-09] MEDS: traZODone 50 MG TAB PO SCH (22:08)
[2018-10-09] MEDS ORDERED: VANCOMYCIN HCL 1.5 GM in SOD CHLORIDE 0.9% 250 ML IVPB ONE (23:00)
[2018-10-09] MEDS: PIPER-TAZO 3.375 GM IV (PMX) 100 ML IVPB SCH (23:39)
[2018-10-10 04:00] VITALS: BP 148/69; PULSE 78; RESP 18
[2018-10-10] MEDS: PANTOPRAZOLE (EC) 40 MG TAB PO SCH (05:58)
[2018-10-10] MEDS: PIPER-TAZO 3.375 GM IV (PMX) 100 ML IVPB SCH ×3 (06:54→22:10)
[2018-10-10] MEDS: DOCUSATE SODIUM 100 MG CAP PO SCH ×2 (07:41→21:09)
[2018-10-10 07:42] VITALS: BP 136/62; PULSE 70; RESP 18
[2018-10-10] MEDS: AMLODIPINE 5 MG TAB PO SCH (08:07)
[2018-10-10] MEDS: FOLIC ACID 1 MG TAB PO SCH (08:07)
[2018-10-10] MEDS: FERROUS SULFATE (EC) 325 MG TAB PO SCH ×2 (08:07→21:10)
[2018-10-10] MEDS: METOPROLOL 25 MG TAB PO SCH ×2 (08:07→21:14)
[2018-10-10] MEDS: ASCORBIC ACID 250 MG TAB PO SCH (08:08)
[2018-10-10] MEDS: POLYETHYLENE GLYCOL 17 GM PACKET PO SCH (08:08)
[2018-10-10] MEDS: FUROSEMIDE 20 MG TAB PO SCH (08:08)
[2018-10-10] MEDS: ZINC SULFATE 220 MG CAP PO SCH (08:08)
[2018-10-10] MEDS: ENOXAPARIN 40 MG/0.4 ML SYG SC SCH (08:09)
[2018-10-10] MEDS: MULTIVITAMINS THERAPEUTIC TAB PO SCH (08:09)
[2018-10-10] MEDS: ACETAMINOPHEN 325 MG TAB PO PRN (10:13)
--- NOTE | 2018-10-10 12:37 | PN ---
Date/Time of Note Date/Time of Note DATE: 10/10/18 TIME: 12:36 Objective Vital Signs Date Temp Pulse Resp B/P (MAP) Pulse Ox O2 O2 Flow FiO2 Time Delivery Rate 10/10/18 98.3 70 18 136/62 93 Room Air 07:42 (86) 10/09/18 2.0 08:08 Intake and Output 10/09/18 10/09/18 10/10/18 1515:00 23:00 07:00 IntakeIntake Total 890 ml 600 ml 550 ml OutputOutput Total 400 ml 450 ml 2000 ml BalanceBalance 490 ml 150 ml -1450 ml Exam INTERDISCIPLINARY TEAM CONFERENCE Attended by PT, OT, ST, Marine Pipefitter, Social Work, Rehabilitation Nursing, Standards Engineer and Manager BatteryMgmt Consultant Exam: Pulm-cta Abd-soft BOWEL- Cont BLADDER-Cont SKIN- improving OT- DRESSING-sba ub/mod /max lb BATHING-sba ub/mod /max lb TOILETING-mod PT- BED MOBILITY-mod TRANSFERS-max AMBULATION-max 5 feet A/P- Interdisciplinary team conference held today. Please see interdisciplinary sheet. Working toward d.c. on 10/18 with post discharge follow up of physical therapy, occupational therapy. Patient was not feeling well the last 2-3 days, She had a notable leukocytosis which has improved since antibiotics were instituted. Results/Medications Result Diagram: 10/10/18 0611 10/10/18 0611 Results 24 hrs Laboratory Tests Test 10/09/18 18:10 10/09/18 21:00 10/10/18 06:11 White Blood Count 15.3 #H 12.5 H Red Blood Count 2.90 L 2.72 L Hemoglobin 8.8 L 8.2 L Hematocrit 27.9 L 26.1 L Mean Corpuscular Volume 96.2 96.0 Mean Corpuscular Hemoglobin 30.3 30.1 Mean Corpuscular 31.5 L 31.4 L Hemoglobin Concent Red Cell Distribution Width 13.9 14.3 Platelet Count 400 367 Mean Platelet Volume 10.0 10.3 Immature Granulocytes % 4.800 H 4.600 H Neutrophils % 64.5 56.1 Lymphocytes % 20.7 26.0 Monocytes % 7.6 9.9 Eosinophils % 1.6 2.6 Basophils % 0.8 0.8 Nucleated Red Blood Cells % 0.0 0.0 Immature Granulocytes # 0.740 H 0.580 H Neutrophils # 9.9 H 7.0 Lymphocytes # 3.2 H 3.3 H Monocytes # 1.2 H 1.2 H Eosinophils # 0.2 0.3 Basophils # 0.1 0.1 Nucleated Red Blood Cells # 0.0 0.0 Urine Color YELLOW Urine Clarity SLIGHTLY CLOUDY A Urine pH 8.0 Urine Specific [place] 1.005 Urine Ketones NEGATIVE Urine Nitrite NEGATIVE Urine Bilirubin NEGATIVE Urine Urobilinogen NEGATIVE Urine Leukocyte Esterase 2+ H Urine Microscopic RBC 2 Urine Microscopic WBC 34 H Urine Squamous FEW Epithelial Cells Urine Amorphous Crystals FEW A Urine Bacteria FEW A Urine Hemoglobin NEGATIVE Urine Glucose NEGATIVE Urine Total Protein NEGATIVE Sodium Level 139 Potassium Level 4.2 Chloride Level 106 Carbon Dioxide Level 28 Anion Gap 5 Blood Urea Nitrogen 20 Creatinine 1.35 H Est Glomerular Filtrat Rate mL/min Glucose Level 99 Calcium Level 8.8 Medications Current Medications Miscellaneous Information (Pending [facility] Order For Wound Care) This patient walsh... PRN PRN XX WOUND CARE; Start 10/03/18 at 18:30 Pantoprazole (Protonix Tab) 40 mg DAILY@06 PO Last administered on 10/10/18 05:58; Admin Dose 40 MG; Start 10/04/18 at 06:00 Hydralazine HCl (Apresoline) 25 mg Q4H PRN PO ELEVATED SYSTOLIC BP Last administered on 10/06/18at 12:00; Admin Dose 25 MG; Start 10/03/18 at 19:30 Acetaminophen (Tylenol Tab) 650 mg Q4H PRN PO MILD PAIN(1-3)OR ELEVATED TEMP Last administered on 10/10/18at 10:13; Admin Dose 650 MG; Start 10/03/18 at 19:30 Metoprolol Tartrate (Lopressor) 25 mg BID PO Last administered on 10/10/18 08:07; Admin Dose 25 MG; Start 10/03/18 at 21:00 Docusate Sodium (Colace) 100 mg BID PO Last administered on 10/06/18 09:34; Admin Dose 100 MG; Start 10/03/18 at 21:00 Polyethylene Glycol (Miralax) 17 gm DAILY PO Last administered on 10/06/18 09:33; Admin Dose 17 GM; Start 10/04/18 at 09:00 Senna (Senokot) 1 tab HS PO Last administered on 10/04/18 21:05; Admin Dose 1 TAB; Start 10/03/18 at 21:00 Bisacodyl (Dulcolax Supp) 10 mg DAILY PRN [place] CONSTIPATION; Start 10/03/18 at 19:30 Tramadol HCl (Ultram) 50 mg Q4H PRN PO MODERATE PAIN LEVEL 4-6; Start 10/03/18 at 19:30 Acetaminophen/ Hydrocodone Bitart ([place] (5/325)) 1 tab Q4H PRN PO SEVERE PAIN LEVEL 7-10 Last administered on 10/07/18 10:28; Admin Dose 1 TAB; Start 10/03/18 at 19:30 Ferrous Sulfate (Ferrous Sulfate (Ec)) 325 mg BID PO Last administered on 10/10/18 08:07; Admin Dose 325 MG; Start 10/03/18 at 21:00 Ascorbic Acid (Vitamin C) 250 mg DAILY PO Last administered on 10/10/18 08:08; Admin Dose 250 MG; Start 10/04/18 at 15:00 Multivitamins Therapeutic (Theragran) 1 tab DAILY PO Last administered on 10/10/18 08:09; Admin Dose 1 TAB; Start 10/04/18 at 15:00 Folic Acid (Folic Acid) 1 mg DAILY PO Last administered on 10/10/18 08:07; Admin Dose 1 MG; Start 10/04/18 at 15:00 Zinc Sulfate (Zinc Sulfate) 220 mg DAILY PO Last administered on 10/10/18 08:08; Admin Dose 220 MG; Start 10/04/18 at 15:00 Enoxaparin Sodium (Lovenox) 40 mg DAILY SC Last administered on 10/10/18 08:09; Admin Dose 40 MG; Start 10/06/18 at 09:00 Amlodipine Besylate (Norvasc) 5 mg DAILY PO Last administered on 10/10/18 08:07; Admin Dose 5 MG; Start 10/06/18 at 16:30 Trazodone HCl (Desyrel) 25 mg QHS PO Last administered on 10/09/18 22:08; Admin Dose 25 MG; Start 10/06/18 at 21:00 Piperacillin Sod/ Tazobactam Sod 100 ml @ 200 mls/hr Q8 IVPB Last administered on 5/30/19at 06:54; Admin Dose 200 MLS/HR; Start 10/09/18 at 22:00; Stop 10/16/18 at 21:59 Vancomycin HCl (Vanco Iv Per Pharmacy) VANCOMYCIN PER PHARMACY PER PROTOCOL XX ; Start 10/09/18 at 21:00; Stop 10/16/18 at 20:59 Vancomycin HCl 250 ml @ 125 mls/hr Q24H IVPB ; Start 10/10/18 at 23:00 RONA FLOWERS MD October 10, 2018 12:37
[2018-10-10 14:30] VITALS: BP 130/60; RESP 18
[2018-10-10 20:00] VITALS: BP 115/74; PULSE 71; RESP 18
[2018-10-10] MEDS: traZODone 50 MG TAB PO SCH (21:10)
[2018-10-10] MEDS: SENNA TAB PO SCH (21:10)
[2018-10-10] MEDS: PREGABALIN 50 MG CAP PO SCH (22:10)
[2018-10-10] MEDS ORDERED: VANCOMYCIN 1 GM 250 ML IVPB SCH (23:00)
[2018-10-11 02:00] VITALS: BP 123/68; PULSE 71; RESP 18
[2018-10-11] MEDS: PIPER-TAZO 3.375 GM IV (PMX) 100 ML IVPB SCH ×2 (06:38→14:41)
[2018-10-11] MEDS: PANTOPRAZOLE (EC) 40 MG TAB PO SCH (06:38)
[2018-10-11 07:55] VITALS: BP 129/62; PULSE 78; RESP 18
--- NOTE | 2018-10-11 08:08 | PN ---
DATE: 10/10/2018 SUBJECTIVE: The patient seen. Unfortunately, yesterday she was noted to have worsening leukocytosis . I requested blood cultures, urinalysis, urine culture and wound culture from the right hip area. Ultimately, she was found to have urinary tract infection. I empirically started her already on broa d-spectrum antibiotics with vancomycin and Zosyn and already white count improved to 12.5 and urine c ulture preliminary result does show enterococcus species greater than 100,000. We will await culture results. The patient is slowly responding to therapy, which is a challenge, but overall patient ayala ears to be alert and feeling comfortable. PHYSICAL EXAMINATION: VITAL SIGNS: Temperature is 98.3, pulse 70, respirations 18, blood pressure 130/60, saturation 95% r oom air. GENERAL: No acute distress. The patient is pale. CARDIOVASCULAR: S1, S2, regular rate. LUNGS: Clear. ABDOMEN: Soft. EXTREMITIES: No clubbing or cyanosis or edema. The patient still has a Ng due to a DTI in the sa [place]. LABORATORY DATA: White count 12.5, hemoglobin 8.2, hematocrit 26, platelet count 367, neutrophils 56 %, eosinophils 26%, monocytes 10%. Chemistry: Sodium 139, potassium 4.2, chloride 106, bicarbonate 28, BUN is 20, creatinine slightly high at 1.35 and glucose of 99. Urinalysis slightly cloudy +2 ian kocyte esterase, WBC 34, few epithelial cells and few bacteria. The patient's culture again shows En terococcus. Wound culture preliminary shows no organism seen. CURRENT MEDICATIONS: Reviewed. 1. Vancomycin and Zosyn dose per pharmacy. 2. Trazodone 25 at bedtime. 3. Norvasc 5 mg daily. 4. Lovenox 40 mg subq daily. 5. Vitamin C. 6. Multivitamin. 7. Folic acid. 8. Zinc sulfate. 9. MiraLax. 10. Protonix. 11. Lopressor. 12. Colace. 13. Senna. 14. Ferrous sulfate. 15. Hydralazine. 16. Tylenol. 17. Ultram. 18. [place] noted. ASSESSMENT AND PLAN: This is a 77-year-old female with history of hypertension, chron ic kidney disease, peripheral vascular disease, peripheral edema, osteoarthritis, status post ground level fall, was found to have right hip fracture. 1. Right hip fracture, status post repair. Continue physical therapy, pain control. Add Lyrica as she takes at night. Continue wound care. 2. Wounds including right hip and sacrum. Continue wound care, offloading, air mattress bed, freque nt turnings. 3. Infectious disease. The patient with evidence of UTI with Enterococcus species. Continue vancom ycin and Zosyn. Deescalate antibiotics once we get the culture results. Monitor WBC. 4. Anemia, on iron supplements. Transfuse p.r.n. 5. Hypertension. Continue above meds. 6. Maximum nutrition support. The patient is a very picky with what she eats. Family brings food f rom outside so she eats that more. 7. Continue to monitor patient's progress with physical therapy. 8. Osteoarthritis. Again, continue above Lyrica, Tylenol p.r.n. 9. No edema. Off Lasix, observe. 10. Slightly worsening kidney function. Monitor daily in the setting of antibiotics and nephrotoxic medications. Case discussed with family at bedside. Overall, clinically doing better. We will fol low. Dictated By: MANUEL GRACIA/EMMA Conf#: [id number] DID#: [id number]
[2018-10-11] MEDS: METOPROLOL 25 MG TAB PO SCH ×2 (09:00→21:21)
[2018-10-11] MEDS: AMLODIPINE 5 MG TAB PO SCH (09:00)
[2018-10-11] MEDS: POLYETHYLENE GLYCOL 17 GM PACKET PO SCH (09:00)
[2018-10-11] MEDS: DOCUSATE SODIUM 100 MG CAP PO SCH ×2 (09:10→21:00)
[2018-10-11] MEDS: ASCORBIC ACID 250 MG TAB PO SCH (09:10)
[2018-10-11] MEDS: ACETAMINOPHEN 325 MG TAB PO PRN ×3 (09:10→21:20)
[2018-10-11] MEDS: FOLIC ACID 1 MG TAB PO SCH (09:10)
[2018-10-11] MEDS: ZINC SULFATE 220 MG CAP PO SCH (09:10)
[2018-10-11] MEDS: FERROUS SULFATE (EC) 325 MG TAB PO SCH ×2 (09:10→21:18)
[2018-10-11] MEDS: ENOXAPARIN 40 MG/0.4 ML SYG SC SCH (09:19)
[2018-10-11] MEDS: MULTIVITAMINS THERAPEUTIC TAB PO SCH (09:20)
[2018-10-11] MEDS ORDERED: VANCOMYCIN HCL 1.25 GM in SOD CHLORIDE 0.9% 250 ML IVPB SCH (12:00)
--- NOTE | 2018-10-11 19:02 | PN ---
DATE: 10/11/2018 SUBJECTIVE: Urine culture did show enterococcus sensitive to vancomycin and wound culture shows Stap h species, so we will discontinue the Zosyn and keep the patient on vancomycin until final cultures a re available. PHYSICAL EXAMINATION: VITAL SIGNS: Temperature 98.3, pulse 78, respirations 18, blood pressure 129/62, saturation 97% on r oom air. GENERAL: In no acute distress. HEENT: Normocephalic, atraumatic. Pale. CARDIOVASCULAR: S1, S2. Regular rate. LUNGS: Clear. ABDOMEN: Soft. EXTREMITIES: No clubbing, cyanosis or edema. GENITOURINARY: The patient has a Ng due to a DTI in the sacrum. NEUROLOGIC: Of note, the patient participated more with physical therapy. LABORATORY DATA: White count 11.2, hemoglobin 8.4, hematocrit 27, platelets 387, neutrophils 55%, ly mphs 25%. Chemistry: Sodium 140, potassium 4.2, chloride 106, bicarbonate 28, BUN is 19, creatinine 1.51 and glucose of 89. The patient's urine culture shows Enterococcus species sensitive to ampicil ashley, Cipro, Levaquin, nitrofurantoin, penicillin and vancomycin. The patient's wound culture does sh ow staph species, scant growth. ASSESSMENT AND PLAN: This is a 77-year-old female with history of hypertension, chron ic kidney disease, peripheral vascular disease, peripheral edema, osteoarthritis, status post ground level fall, was found to have right hip fracture. 1. Right hip fracture, status post repair. Continue pain control, physical therapy, deep vein throm bosis prophylaxis and gastrointestinal prophylaxis. 2. Wound involving the right hip. Follow up culture results. In the meantime, continue wound care and pain control. 3. Urinary tract infection. Continue vancomycin. 4. Anemia. Transfuse p.r.n. On iron supplements. 5. Hypertension. Continue above meds. 6. Maximum nutrition support for maximum wound healing and strength. 7. Continue rehabilitation, improving. 8. Osteoarthritis. Pain control will be provided, off Lasix as there is no evidence of edema. 9. Acute on chronic renal insufficiency. Continue to monitor kidney function. Try to minimize neph rotoxic medications. Follow up electrolytes tomorrow. We will follow. Dictated By: MANUEL GRACIA/EMMA Conf#: [id number] DID#: [id number] CC: RONA FLOWERS MD;*EndCC*
[2018-10-11 20:00] VITALS: BP 124/68; PULSE 76; RESP 18
[2018-10-11] MEDS: SENNA TAB PO SCH (21:00)
[2018-10-11] MEDS: traZODone 50 MG TAB PO SCH (21:18)
[2018-10-11] MEDS: PREGABALIN 50 MG CAP PO SCH (21:18)
[2018-10-12] MEDS ORDERED: VANCOMYCIN HCL 1.25 GM in SOD CHLORIDE 0.9% 250 ML IVPB SCH (01:00)
[2018-10-12 02:30] VITALS: BP 125/59; PULSE 65; RESP 18
[2018-10-12] MEDS: PANTOPRAZOLE (EC) 40 MG TAB PO SCH (05:47)
[2018-10-12 08:00] VITALS: BP 145/67; RESP 18
[2018-10-12] MEDS: POLYETHYLENE GLYCOL 17 GM PACKET PO SCH (09:00)
[2018-10-12] MEDS: DOCUSATE SODIUM 100 MG CAP PO SCH ×2 (09:01→20:30)
[2018-10-12] MEDS: MULTIVITAMINS THERAPEUTIC TAB PO SCH (09:01)
[2018-10-12] MEDS: ZINC SULFATE 220 MG CAP PO SCH (09:01)
[2018-10-12] MEDS: FERROUS SULFATE (EC) 325 MG TAB PO SCH ×2 (09:01→20:31)
[2018-10-12] MEDS: ASCORBIC ACID 250 MG TAB PO SCH (09:01)
[2018-10-12] MEDS: AMLODIPINE 5 MG TAB PO SCH (09:02)
[2018-10-12] MEDS: METOPROLOL 25 MG TAB PO SCH ×2 (09:02→20:31)
[2018-10-12] MEDS: FOLIC ACID 1 MG TAB PO SCH (09:02)
[2018-10-12] MEDS: ENOXAPARIN 40 MG/0.4 ML SYG SC SCH (09:06)
--- NOTE | 2018-10-12 09:17 | PN ---
Date/Time of Note Date/Time of Note DATE: 10/12/18 TIME: 09:16 Subjective Feeling better Objective Vital Signs Date Temp Pulse Resp B/P (MAP) Pulse Ox O2 O2 Flow FiO2 Time Delivery Rate 10/12/18 97.9 65 18 125/59 95 Room Air 02:30 (81) 10/09/18 2.0 08:08 Intake and Output 10/11/18 10/11/18 10/12/18 1515:00 23:00 07:00 IntakeIntake Total 100 ml 800 ml 250 ml OutputOutput Total 800 ml BalanceBalance 100 ml 0 ml 250 ml Exam pulm-cta abd-soft mod assist Results/Medications Result Diagram: 10/12/18 0630 10/12/18 0630 Results 24 hrs Laboratory Tests Test 10/12/18 06:30 White Blood Count 9.8 Red Blood Count 2.63 L Hemoglobin 8.1 L Hematocrit 25.9 L Mean Corpuscular Volume 98.5 Mean Corpuscular Hemoglobin 30.8 Mean Corpuscular Hemoglobin Concent 31.3 L Red Cell Distribution Width 14.5 Platelet Count 368 Mean Platelet Volume 10.6 H Immature Granulocytes % 2.500 H Neutrophils % 50.8 Lymphocytes % 29.5 Monocytes % 11.4 H Eosinophils % 4.9 Basophils % 0.9 Nucleated Red Blood Cells % 0.0 Immature Granulocytes # 0.250 H Neutrophils # 5.0 Lymphocytes # 2.9 Monocytes # 1.1 H Eosinophils # 0.5 Basophils # 0.1 Nucleated Red Blood Cells # 0.0 Sodium Level 140 Potassium Level 4.3 Chloride Level 108 Carbon Dioxide Level 26 Anion Gap 6 Blood Urea Nitrogen 19 Creatinine 1.29 H Est Glomerular Filtrat Rate mL/min Glucose Level 86 Calcium Level 8.8 Phosphorus Level 4.6 Magnesium Level 1.9 Medications Current Medications Miscellaneous Information (Pending Santyl Order For Wound Care) This patient walsh... PRN PRN XX WOUND CARE; Start 10/03/18 at 18:30 Pantoprazole (Protonix Tab) 40 mg DAILY@06 PO Last administered on 10/12/18at 05:47; Admin Dose 40 MG; Start 10/04/18 at 06:00 Hydralazine HCl (Apresoline) 25 mg Q4H PRN PO ELEVATED SYSTOLIC BP Last administered on 10/06/18at 12:00; Admin Dose 25 MG; Start 10/03/18 at 19:30 Acetaminophen (Tylenol Tab) 650 mg Q4H PRN PO MILD PAIN(1-3)OR ELEVATED TEMP Last administered on 10/11/18 21:20; Admin Dose 650 MG; Start 10/03/18 at 19:30 Metoprolol Tartrate (Lopressor) 25 mg BID PO Last administered on 10/12/18 09:02; Admin Dose 25 MG; Start 10/03/18 at 21:00 Docusate Sodium (Colace) 100 mg BID PO Last administered on 10/12/18 09:01; Admin Dose 100 MG; Start 10/03/18 at 21:00 Polyethylene Glycol (Miralax) 17 gm DAILY PO Last administered on 10/12/18 09:00; Admin Dose 17 GM; Start 10/04/18 at 09:00 Senna (Senokot) 1 tab HS PO Last administered on 10/10/18 21:10; Admin Dose 1 TAB; Start 10/03/18 at 21:00 Bisacodyl (Dulcolax Supp) 10 mg DAILY PRN OR CONSTIPATION; Start 10/03/18 at 19:30 Tramadol HCl (Ultram) 50 mg Q4H PRN PO MODERATE PAIN LEVEL 4-6; Start 10/03/18 at 19:30 Acetaminophen/ Hydrocodone Bitart ([place] (5/325)) 1 tab Q4H PRN PO SEVERE PAIN LEVEL 7-10 Last administered on 10/07/18 10:28; Admin Dose 1 TAB; Start 10/03/18 at 19:30 Ferrous Sulfate (Ferrous Sulfate (Ec)) 325 mg BID PO Last administered on 10/12/18 09:01; Admin Dose 325 MG; Start 10/03/18 at 21:00 Ascorbic Acid (Vitamin C) 250 mg DAILY PO Last administered on 10/12/18 09:01; Admin Dose 250 MG; Start 10/04/18 at 15:00 Multivitamins Therapeutic (Theragran) 1 tab DAILY PO Last administered on 10/12/18 09:01; Admin Dose 1 TAB; Start 10/04/18 at 15:00 Folic Acid (Folic Acid) 1 mg DAILY PO Last administered on 10/12/18 09:02; Admin Dose 1 MG; Start 10/04/18 at 15:00 Zinc Sulfate (Zinc Sulfate) 220 mg DAILY PO Last administered on 10/12/18at 09:01; Admin Dose 220 MG; Start 10/04/18 at 15:00 Enoxaparin Sodium (Lovenox) 40 mg DAILY SC Last administered on 10/12/18at 09:06; Admin Dose 40 MG; Start 10/06/18 at 09:00 Amlodipine Besylate (Norvasc) 5 mg DAILY PO Last administered on 10/12/18at 09:02; Admin Dose 5 MG; Start 10/06/18 at 16:30 Trazodone HCl (Desyrel) 25 mg QHS PO Last administered on 10/11/18 21:18; Admin Dose 25 MG; Start 10/06/18 at 21:00 Vancomycin HCl (Vanco Iv Per Pharmacy) VANCOMYCIN PER PHARMACY PER PROTOCOL XX ; Start 10/09/18 at 21:00; Stop 10/16/18 at 20:59 Pregabalin (Lyrica) 50 mg QHS PO Last administered on 10/11/18at 21:18; Admin Dose 50 MG; Start 10/10/18 at 21:00 Vancomycin HCl 1.25 gm/Sodium Chloride 250 ml @ 83.333 mls/ hr Q48H IVPB Last administered on 10/12/18 01:30; Admin Dose 83.333 MLS/HR; Start 10/12/18 at 01:00 Assessment/Plan Additional Assessment/Plan Rehab- Right intertrochanteric hip fracture status post ORIF. Continue rehab program ID- continue current antibiotics. Leukocytosis resolved Hypertension. Anemia Acute on Chronic Kidney Disease Peripheral Vascular Disease Acute Pain Syndrome Right buttock DTI and mid sacral moisture related fissure- continue offloading RONA FLOWERS MD Oct 12, 2018 09:17
--- NOTE | 2018-10-12 18:31 | PN ---
DATE: 10/12/2018 SUBJECTIVE: The patient seen sitting in a wheelchair, feeling better, awake and appears to be more c omfortable. PHYSICAL EXAMINATION: VITAL SIGNS: Temperature 98, pulse 65, respirations 18, blood pressure 145/67, saturation 96% on helen m air. GENERAL: No acute distress. HEENT: Normocephalic, atraumatic. Pale. CARDIOVASCULAR: S1, S2, regular rate. LUNGS: Clear. ABDOMEN: Soft, nontender. EXTREMITIES: No edema of the legs. LABORATORY DATA: White count 9.8, hemoglobin 8.1, hematocrit 26, platelet count of 368, neutrophils 51%, ____ 20%, monocytes 11%. Chemistry: Sodium is 140, potassium 4.3, chloride 108, bicarbonate 26 , BUN is 19, creatinine 1.29, and glucose of 86. Urinalysis on October 09 was positive. The patient's urine culture shows Enterococcus species, pansensitive also to quinolones and vancomycin. Wound cul ture shows coagulase-negative staph, scant growth, but is resistant to Cipro or quinolones, but sensi tive to vancomycin. MEDICATIONS: 1. Vancomycin dose per pharmacy. 2. Lyrica 50 mg at bedtime. 3. Vancomycin dose per pharmacy. 4. Trazodone 25 at bedtime. 5. Norvasc 5 mg daily. 6. Lovenox 40 mg subcutaneous daily. 7. Vitamin C 250 daily. 8. Multivitamin 2 daily. 9. Folic acid 1 mg daily. 10. Zinc sulfate 220 daily. 11. MiraLax 17 grams daily. 13. Potassium ____ daily. 14. Lopressor 25 b.i.d. 15. Colace 100 b.i.d. 16. Senna 1 tab at bedtime. 17. Ferrous sulfate 325 b.i.d. 18. Hydralazine p.r.n. 19. Tylenol p.r.n. 20. Dulcolax p.r.n. 21. ____ p.r.n. 22. [place] p.r.n. ASSESSMENT AND PLAN: This is 77-year-old female with history of hypertension, chronic kidney disease, peripheral vascular disease, peripheral edema, osteoarthritis, status post ground le ethel fall, was found to have right hip fracture, status post repair. 1. Status post right hip fracture repair with intramedullary andrés placement. The patient will contin ue physical therapy, pain control and wound care to her being provided to the right hip and right kne e suture sites. 2. Urinary tract infection. Continue vancomycin for another day. May need to change to oral ciprof loxacin soon. 3. Anemia. Transfuse p.r.n. Continue iron supplement. 4. Hypertension. Continue above meds. 5. Maximum nutrition support. 6. The patient appears to be doing well. Encourage participation with physical therapy or occupatio nal therapy. 7. Osteoarthritis. Again, pain control is being provided as well as physical therapy. 8. Acute on chronic renal insufficiency. Kidney function improved. Continue to monitor. We will f ollow closely, and again, we may consider transfusion due to hemoglobin of 8.1. We will continue to follow. 9. DTI of the sacrum. This patient has a Ng. Continue wound care. We will follow. Dictated By: MANUEL GRACIA/EMMA Conf#: [id number] DID#: [id number] CC: RONA FLOWERS MD;*EndCC*
[2018-10-12 20:00] VITALS: BP 134/65; PULSE 76; RESP 18
[2018-10-12] MEDS: SENNA TAB PO SCH (20:30)
[2018-10-12] MEDS: traZODone 50 MG TAB PO SCH (20:31)
[2018-10-12] MEDS: PREGABALIN 50 MG CAP PO SCH (20:31)
[2018-10-13 02:00] VITALS: BP 128/68; PULSE 74; RESP 18
[2018-10-13] MEDS: ACETAMINOPHEN 325 MG TAB PO PRN ×2 (02:20→20:29)
[2018-10-13] MEDS: PANTOPRAZOLE (EC) 40 MG TAB PO SCH (06:47)
[2018-10-13] MEDS: POLYETHYLENE GLYCOL 17 GM PACKET PO SCH (09:21)
[2018-10-13] MEDS: FERROUS SULFATE (EC) 325 MG TAB PO SCH ×2 (09:23→20:29)
[2018-10-13] MEDS: METOPROLOL 25 MG TAB PO SCH ×2 (09:23→20:29)
[2018-10-13] MEDS: AMLODIPINE 5 MG TAB PO SCH (09:23)
[2018-10-13] MEDS: ASCORBIC ACID 250 MG TAB PO SCH (09:23)
[2018-10-13] MEDS: ZINC SULFATE 220 MG CAP PO SCH (09:23)
[2018-10-13] MEDS: DOCUSATE SODIUM 100 MG CAP PO SCH ×2 (09:23→20:29)
[2018-10-13] MEDS: FOLIC ACID 1 MG TAB PO SCH (09:23)
[2018-10-13] MEDS: MULTIVITAMINS THERAPEUTIC TAB PO SCH (09:23)
[2018-10-13] MEDS: ENOXAPARIN 40 MG/0.4 ML SYG SC SCH (09:24)
[2018-10-13 10:51] VITALS: BP 130/58; PULSE 71; RESP 20
[2018-10-13] MEDS ORDERED: VANCOMYCIN HCL 1.25 GM in SOD CHLORIDE 0.9% 250 ML IVPB SCH (13:00)
[2018-10-13 14:30] VITALS: BP 123/66; RESP 19
--- NOTE | 2018-10-13 18:16 | PN ---
DATE: 10/13/2018 SUBJECTIVE: The patient was seen, noted slight drop in hemoglobin 7.8. We will continue to monitor. Also, the patient was found to have VRE in the wound, so I discontinued the vancomycin and started Zyvox and requested ID consultation with Dr. Moran. The patient is overall improving. She is able to participate more with physical therapy. PHYSICAL EXAMINATION: VITAL SIGNS: Temperature 98.8, pulse 74, respirations 18, blood pressure 128/68, saturation 95%. GENERAL: No acute distress. HEENT: Head is normocephalic, atraumatic. Pale. CARDIOVASCULAR: S1, S2, regular rate. LUNGS: Clear. ABDOMEN: Soft. EXTREMITIES: No clubbing, cyanosis or edema. The patient has leg squeezers bilateral lower extremit ies. LABORATORY DATA: White count 10.3, hemoglobin 7.8, hematocrit 25, platelet count of 352, neutrophils 59%, lymphs 24%, monocytes 11%. Chemistry: Sodium 139, potassium 4.5, chloride 108, bicarbonate 25 , BUN is 23, creatinine 1.3 and glucose 115. Urinalysis did show +2 leukocyte esterase. Urine cultu re shows Enterococcus species. Wound culture shows coagulase negative staph and VRE. MEDICATIONS: 1. Zyvox switched from IV to p.o. 600 b.i.d. 2. Lyrica 50 mg at bedtime. 3. Trazodone 25 at bedtime. 4. Norvasc 5 mg daily. 5. Lovenox 40 mg daily. 6. Vitamin C 250 daily. 7. Multivitamin 1 tab daily. 8. Folic acid 1 mg daily. 9. Zinc sulfate 220 daily. 10. MiraLax 17 grams daily. 11. Protonix 40 mg daily. 12. Lopressor 25 b.i.d. 13. Colace 100 b.i.d. 14. Senna 1 tab at bedtime. 15. Ferrous sulfate 325 b.i.d. 16. Hydralazine p.r.n. 17. Tylenol p.r.n. 18. Ultram p.r.n. 19. [place] p.r.n. ASSESSMENT AND PLAN: This is a 77-year-old female with history of hypertension, chron ic kidney disease, peripheral vascular disease, peripheral edema, osteoarthritis, status post ground level fall, was found to have right hip fracture, status post repair. 1. Status post right hip fracture repair, receiving physical therapy, slowly improving. Pain contro l is being provided. 2. Post-surgical anemia. Continue iron supplements. Continue to monitor H and H. Transfuse if the re is further drop in H and H. I will inform the family at bedside. As well, we will hold transfusi on for another day or 2, pending labs. 3. Urinary tract infection and right hip wound, now on Zyvox. 4. Hypertension. Continue above meds. 5. Maximum nutrition support. Eating more. 6. Osteoarthritis, receiving physical therapy. 7. Acute on chronic renal insufficiency. Continue to monitor kidney function and electrolytes. 8. Deep tissue injury on the sacrum. The patient has a Ng. Air mattress bed, offloading and carlie quent turning. Overall, continues to improve. Case was discussed with family. We will follow. Dictated By: MANUEL RGACIA/EMMA Conf#: [id number] DID#: [id number] CC: ORNA FLOWERS MD;*EndCC*
--- NOTE | 2018-10-13 18:30 | CONS ---
DATE OF ADMISSION: 10/03/2018 DATE OF CONSULTATION: 10/13/2018 TYPE OF CONSULTATION: Infectious disease. REQUESTING PHYSICIAN: Laureano Sotelo MD Thank you for this consultation. HISTORY OF PRESENT ILLNESS: This is a well-developed, very pleasant obese elderly Greek woman wit h a history of hip fracture, status post repair done by Dr. Mcfadden. The patient is also with a hist ory of hypertension, peripheral vascular disease, chronic kidney disease and osteoarthritis. The pat ient is currently on acute rehabilitation unit with right hip drainage, culture grew VRE and coag neg ative staph species. Her urine culture also grew Enterococcus species susceptible to all antibiotics . Of note, the patient has a Ng catheter because of her sacral wound. VITAL SIGNS: The patient had been afebrile since admission. Current temperature 98.8, pulse 74, res pirations 18, blood pressure 128/68, saturation 95 on room air. LABORATORY DATA: WBC 10.3, H and H 7.8 and 25.3, platelets 352, neutrophils 59.4. BUN 23, creatinin e 1.30. ANTIMICROBIALS: 1. The patient was initially on IV vancomycin. 2. Currently on Zyvox IV. PHYSICAL EXAMINATION: GENERAL: This is a very pleasant obese elderly woman who is alert, in no distress. HEENT: Head is atraumatic, normocephalic. Sclerae are anicteric. NECK: Supple. CHEST: Rise is symmetrical. Breath sounds are clear. HEART: S1, S2. ABDOMEN: Soft. Bowel tones are present. EXTREMITIES: With bilateral lower edema, right hip and lower part of the leg. Dressing clean, dry a nd intact. I looked at the picture. The [place] are without erythema. DIAGNOSTIC IMPRESSION: This is a 77-year-old woman who is status post right total hip replacement wi th a culture from the drainage grew vancomycin-resistant Enterococcus. The patient also has an enter ococcus growing in her urine that could be colonization secondary to Ng catheter. She is clinical ly and hemodynamically stable. We will change Zyvox to p.o. Continue present care. Monitor hip inc ision daily for signs of infection. I discussed with patient and son at bedside. I discussed with Patrick Barreto. Dictated By: JEANCARLOS GASTON TOOL PROGRAMMER for AMY BARRETO MD NI/NTS Conf#: [id number] [facility]#: [id number] CC: LAUREANO SOTELO MD; RONA FLOWERS MD;*End*
[2018-10-13 20:00] VITALS: BP 143/67; PULSE 76; RESP 19
[2018-10-13] MEDS: PREGABALIN 50 MG CAP PO SCH (20:29)
[2018-10-13] MEDS: ZYVOX 600 MG TAB PO SCH (20:29)
[2018-10-13] MEDS: SENNA TAB PO SCH (20:29)
[2018-10-13] MEDS: traZODone 50 MG TAB PO SCH (20:29)
[2018-10-13] MEDS ORDERED: LINEZOLID 600 MG/300 ML (PMX) 300 ML IVPB SCH (21:00)
[2018-10-14 02:00] VITALS: BP 122/66; PULSE 77; RESP 18
[2018-10-14] MEDS: PANTOPRAZOLE (EC) 40 MG TAB PO SCH (06:38)
[2018-10-14 08:00] VITALS: BP 138/63; PULSE 69; RESP 18
[2018-10-14] MEDS: FOLIC ACID 1 MG TAB PO SCH (08:39)
[2018-10-14] MEDS: DOCUSATE SODIUM 100 MG CAP PO SCH ×2 (08:39→21:04)
[2018-10-14] MEDS: ZYVOX 600 MG TAB PO SCH ×2 (08:39→21:04)
[2018-10-14] MEDS: METOPROLOL 25 MG TAB PO SCH ×2 (08:40→21:05)
[2018-10-14] MEDS: AMLODIPINE 5 MG TAB PO SCH (08:40)
[2018-10-14] MEDS: ZINC SULFATE 220 MG CAP PO SCH (08:40)
[2018-10-14] MEDS: ASCORBIC ACID 250 MG TAB PO SCH (08:40)
[2018-10-14] MEDS: MULTIVITAMINS THERAPEUTIC TAB PO SCH (08:40)
[2018-10-14] MEDS: FERROUS SULFATE (EC) 325 MG TAB PO SCH ×2 (08:40→21:04)
[2018-10-14] MEDS: POLYETHYLENE GLYCOL 17 GM PACKET PO SCH (08:40)
[2018-10-14] MEDS: ENOXAPARIN 40 MG/0.4 ML SYG SC SCH (09:47)
--- NOTE | 2018-10-14 12:51 | PN ---
Date/Time of Note Date/Time of Note DATE: 10/14/18 TIME: 12:50 Subjective no new complaints Objective Vital Signs Date Temp Pulse Resp B/P (MAP) Pulse Ox O2 O2 Flow FiO2 Time Delivery Rate 10/14/18 98.5 69 18 138/63 96 Room Air 08:00 (88) Intake and Output 10/13/18 10/13/18 10/14/18 1515:00 23:00 07:00 IntakeIntake Total 300 ml 100 ml 100 ml OutputOutput Total 600 ml 740 ml BalanceBalance 300 ml -500 ml -640 ml Exam pulm-cta abd-soft mod assist transfer Results/Medications Result Diagram: 10/13/1863810/13/18 06 Medications Current Medications Miscellaneous Information (Pending [facility] Order For Wound Care) This patient walsh... PRN PRN XX WOUND CARE; Start 10/03/18 at 18:30 Pantoprazole (Protonix Tab) 40 mg DAILY@06 PO Last administered on 10/14/18at 06:38; Admin Dose 40 MG; Start 10/04/18 at 06:00 Hydralazine HCl (Apresoline) 25 mg Q4H PRN PO ELEVATED SYSTOLIC BP Last administered on 10/06/18at 12:00; Admin Dose 25 MG; Start 10/03/18 at 19:30 Acetaminophen (Tylenol Tab) 650 mg Q4H PRN PO MILD PAIN(1-3)OR ELEVATED TEMP Last administered on 10/13/18 20:29; Admin Dose 650 MG; Start 10/03/18 at 19:30 Metoprolol Tartrate (Lopressor) 25 mg BID PO Last administered on 10/14/18at 08 :40; Admin Dose 25 MG; Start 10/03/18 at 21:00 Docusate Sodium (Colace) 100 mg BID PO Last administered on 10/14/18 08:39; Admin Dose 100 MG; Start 10/03/18 at 21:00 Polyethylene Glycol (Miralax) 17 gm DAILY PO Last administered on 10/14/18 08:40; Admin Dose 17 GM; Start 10/04/18 at 09:00 Senna (Senokot) 1 tab HS PO Last administered on 10/13/18 20:29; Admin Dose 1 TAB; Start 10/03/18 at 21:00 Bisacodyl (Dulcolax Supp) 10 mg DAILY PRN [place] CONSTIPATION; Start 10/03/18 at 19:30 Tramadol HCl (Ultram) 50 mg Q4H PRN PO MODERATE PAIN LEVEL 4-6; Start 10/03/18 at 19:30 Acetaminophen/ Hydrocodone Bitart ([place] (5/325)) 1 tab Q4H PRN PO SEVERE PAIN LEVEL 7-10 Last administered on 10/07/18 10:28; Admin Dose 1 TAB; Start 10/03/18 at 19:30 Ferrous Sulfate (Ferrous Sulfate (Ec)) 325 mg BID PO Last administered on 10/14/18 08:40; Admin Dose 325 MG; Start 10/03/18 at 21:00 Ascorbic Acid (Vitamin C) 250 mg DAILY PO Last administered on 10/14/18 08:40; Admin Dose 250 MG; Start 10/04/18 at 15:00 Multivitamins Therapeutic (Theragran) 1 tab DAILY PO Last administered on 10/14/18 08:40; Admin Dose 1 TAB; Start 10/04/18 at 15:00 Folic Acid (Folic Acid) 1 mg DAILY PO Last administered on 10/14/18 08:39; Admin Dose 1 MG; Start 10/04/18 at 15:00 Zinc Sulfate (Zinc Sulfate) 220 mg DAILY PO Last administered on 10/14/18 08:40; Admin Dose 220 MG; Start 10/04/18 at 15:00 Enoxaparin Sodium (Lovenox) 40 mg DAILY SC Last administered on 10/14/18 09:47; Admin Dose 40 MG; Start 10/06/18 at 09:00 Amlodipine Besylate (Norvasc) 5 mg DAILY PO Last administered on 10/14/18 08:40; Admin Dose 5 MG; Start 10/06/18 at 16:30 Trazodone HCl (Desyrel) 25 mg QHS PO Last administered on 10/13/18 20:29; Admin Dose 25 MG; Start 10/06/18 at 21:00 Pregabalin (Lyrica) 50 mg QHS PO Last administered on 10/13/18 20:29; Admin Dose 50 MG; Start 10/10/18 at 21:00 Linezolid (Zyvox) 600 mg BID PO Last administered on 6/3/19at 08:39; Admin Dose 600 MG; Start 10/13/18 at 21:00 Assessment/Plan Additional Assessment/Plan Rehab- Right intertrochanteric hip fracture status post ORIF. Continue rehab program. DC planning in ID- continue current antibiotics. Leukocytosis resolved Hypertension. Anemia Acute on Chronic Kidney Disease Peripheral Vascular Disease Acute Pain Syndrome Right buttock DTI and mid sacral moisture related fissure- improving RONA FLOWERS MD Oct 14, 2018 12:51
[2018-10-14 14:00] VITALS: BP 127/66; PULSE 78; RESP 18
--- NOTE | 2018-10-14 15:59 | PN ---
DATE: 10/14/2018 SUBJECTIVE: The patient was seen, appears to be comfortable, participated with therapy, walking more , resting in bed comfortably. PHYSICAL EXAMINATION: VITAL SIGNS: Temperature 98.5, pulse 69, respirations 18, blood pressure 138/63, saturation 96% on r oom air. GENERAL: The patient is in no acute distress. HEENT: Normocephalic, atraumatic. Pale. CARDIOVASCULAR: S1, S2. Regular rate. LUNGS: Clear. ABDOMEN: Soft, nontender. EXTREMITIES: No clubbing, cyanosis or edema. GENITOURINARY: Ng to gravity due to sacral wound. LABORATORIES: No new labs today. MEDICATIONS: Reviewed. These include: 1. Zyvox 600 p.o. b.i.d. 2. Lyrica 50 at bedtime. 3. Trazodone 25 at bedtime. 4. Norvasc 5 mg daily. 5. Lovenox 40 mg subcutaneously daily. 6. Vitamin C 250 daily. 7. Multivitamin 1 tab daily. 8. Folic acid 1 mg daily. 9. Zinc sulfate 220 daily. 10. MiraLax 17 grams daily. 11. Potassium daily. 12. Lopressor 25 b.i.d. 13. Colace 100 b.i.d. 14. Senna 1 tab at bedtime. 15. Ferrous sulfate 325 b.i.d. 16. Hydralazine p.r.n. 17. Tylenol p.r.n. 18. Dulcolax p.r.n. 19. Ultram p.r.n. 20. [place] p.r.n. ASSESSMENT AND PLAN: This is a 77-year-old female with history of hypertension, chron ic kidney, peripheral vascular disease, peripheral edema, osteoarthritis, status post ground level fa ll with right hip fracture, status post repair. 1. Status post right hip fracture repair. Continue physical therapy, occupational therapy, help wit h activities of daily living. Pain control is being provided. 2. Postsurgical anemia, on iron supplements. Monitor H and H, transfuse p.r.n. 3. Urinary tract infection with right hip wound which does show vancomycin-resistant Enterococcus. Continue Zyvox. 4. Hypertension. Continue above meds. 5. Maximize nutritional support. 6. Osteoarthritis, on physical therapy. 7. Acute on chronic insufficiency. Monitor electrolytes. 8. Deep tissue injury in the sacrum. Ng to gravity. Offloading. Air mattress bed. Vitamins. Discharge planning per rehabilitation physician. We will follow. Dictated By: MANUEL GRACIA/EMMA Conf#: [id number] DID#: [id number] CC: RONA FLOWERS MD;*EndCC*
[2018-10-14 20:54] VITALS: BP 127/60; PULSE 76; RESP 18
[2018-10-14] MEDS: traZODone 50 MG TAB PO SCH (21:04)
[2018-10-14] MEDS: PREGABALIN 50 MG CAP PO SCH (21:04)
[2018-10-14] MEDS: SENNA TAB PO SCH (21:04)
[2018-10-15 02:00] VITALS: BP 109/58; PULSE 80; RESP 18
[2018-10-15] MEDS: PANTOPRAZOLE (EC) 40 MG TAB PO SCH (06:35)
[2018-10-15 08:00] VITALS: BP 129/58; PULSE 70; RESP 19
[2018-10-15] MEDS: ENOXAPARIN 40 MG/0.4 ML SYG SC SCH (08:51)
[2018-10-15] MEDS: ASCORBIC ACID 250 MG TAB PO SCH (08:57)
[2018-10-15] MEDS: ZINC SULFATE 220 MG CAP PO SCH (08:57)
[2018-10-15] MEDS: MULTIVITAMINS THERAPEUTIC TAB PO SCH (08:58)
[2018-10-15] MEDS: FERROUS SULFATE (EC) 325 MG TAB PO SCH ×2 (08:58→20:57)
[2018-10-15] MEDS: FOLIC ACID 1 MG TAB PO SCH (08:58)
[2018-10-15] MEDS: ZYVOX 600 MG TAB PO SCH ×2 (08:58→20:57)
[2018-10-15] MEDS: AMLODIPINE 5 MG TAB PO SCH (08:59)
[2018-10-15] MEDS: POLYETHYLENE GLYCOL 17 GM PACKET PO SCH (09:00)
[2018-10-15] MEDS: METOPROLOL 25 MG TAB PO SCH ×2 (09:00→20:57)
[2018-10-15] MEDS: DOCUSATE SODIUM 100 MG CAP PO SCH ×2 (09:00→20:57)
--- NOTE | 2018-10-15 10:32 | PN ---
DATE: 10/15/2018 SUBJECTIVE: The patient is sitting in the wheelchair, overall appears to be comfortable. She has no complaints. The patient appears to be very comfortable. PHYSICAL EXAMINATION: VITAL SIGNS: Temperature 98.9, pulse 78, respirations 18, blood pressure 109/58, saturation 98%. GENERAL: The patient is in no acute distress, pale. CARDIOVASCULAR: S1, S2, regular rate and rhythm. LUNGS: Clear. ABDOMEN: Soft, nontender. EXTREMITIES: No clubbing, cyanosis, or edema. LABORATORY DATA: From 10/13/18 white count is 10, hemoglobin 7.1, hematocrit 25, platelet count 352. Chemistry: BUN 23, creatinine 1.3. This was on 10/13/2018. Urinalysis on 10/09/2018 was positive for enterococcus species and wound culture showed of the right hip, VRE and coagulase-negative staph . MEDICATIONS: 1. Zyvox 600 b.i.d. 2. Lyrica 50 at bedtime. 3. Trazodone 25 at bedtime. 4. Norvasc 5 mg daily. 5. Lovenox 40 mg subcutaneously daily. 6. Vitamin C 250 daily. 7. Multivitamin 1 tab daily. 8. Folic acid 1 mg daily. 9. Zinc sulfate 220 daily. 10. MiraLax 17 grams. 11. Potassium 5 daily. 12. Lopressor 25 b.i.d. 13. Colace 100 b.i.d. 14. Senna 1 tab at bedtime. 15. Ferrous sulfate 325 b.i.d. 16. Hydralazine p.r.n. 17. Tylenol p.r.n. 18. Dulcolax p.r.n. 19. Ultram p.r.n. 20. [place] p.r.n. ASSESSMENT AND PLAN: A 77-year-old female with history of hypertension, chronic kidne y, peripheral vascular disease, peripheral edema, osteoarthritis, status post ground level fall with right hip fracture, now status post repair. 1. Status post right hip fracture repair. Continue physical therapy, occupational therapy, help wit h activities of daily living, pain control. Clinically better. 2. Postsurgical anemia, on iron supplements. Monitor hemoglobin and hematology tomorrow. We will c heck his hemoglobin. If below 8, we may consider transfusion. 3. Urinary tract infection with right hip wound. Also, prophylactic superficial skin infection on Z yvox. ID is on board. The patient is afebrile, nontoxic. 4. Hypertension. Continue above medications and continue Lovenox for deep venous thrombosis prophyl axis. 5. Continue gastrointestinal prophylaxis with Protonix. 6. Maximize nutritional support. 7. Continue wound care as patient has a DTI in the sacrum, offloading, air mattress bed is recommend ed. 8. Acute on chronic adrenal insufficiency. Monitor electrolytes. The patient with good appetite. Avoid nephrotoxic medication. 9. Continue to monitor the patient's progress with rehabilitation. Overall, remains medically stabl e. We will follow. Dictated By: MANUEL GRACIA/EMMA Conf#: [id number] DID#: [id number] CC: RONA FLOWERS MD; MANUEL SOTELO MD;*EndCC*
--- NOTE | 2018-10-15 13:50 | PN ---
Date/Time of Note Date/Time of Note DATE: 10/15/18 TIME: 13:48 Subjective Feeling much better today Objective Vital Signs Date Temp Pulse Resp B/P (MAP) Pulse Ox O2 O2 Flow FiO2 Time Delivery Rate 10/15/18 98.9 80 18 109/58 98 Room Air 02:00 (75) Intake and Output 10/14/18 10/14/18 10/15/18 1515:00 23:00 07:00 IntakeIntake Total 500 ml 400 ml OutputOutput Total 750 ml 900 ml BalanceBalance -250 ml -500 ml Exam pulm-cta min assist bed mobility mod assist transfer Results/Medications Result Diagram: 10/13/1839 10/13/18 06 Medications Current Medications Miscellaneous Information (Pending [facility] Order For Wound Care) This patient walsh... PRN PRN XX WOUND CARE; Start 10/03/18 at 18:30 Pantoprazole (Protonix Tab) 40 mg DAILY@06 PO Last administered on 10/15/18 06:35; Admin Dose 40 MG; Start 10/04/18 at 06:00 Hydralazine HCl (Apresoline) 25 mg Q4H PRN PO ELEVATED SYSTOLIC BP Last administered on 10/06/18at 12:00; Admin Dose 25 MG; Start 10/03/18 at 19:30 Acetaminophen (Tylenol Tab) 650 mg Q4H PRN PO MILD PAIN(1-3)OR ELEVATED TEMP Last administered on 10/13/18 20:29; Admin Dose 650 MG; Start 10/03/18 at 19:30 Metoprolol Tartrate (Lopressor) 25 mg BID PO Last administered on 10/15/18at 09:00; Admin Dose 25 MG; Start 10/03/18 at 21:00 Docusate Sodium (Colace) 100 mg BID PO Last administered on 10/14/18 21:04; Admin Dose 100 MG; Start 10/03/18 at 21:00 Polyethylene Glycol (Miralax) 17 gm DAILY PO Last administered on 10/14/18 08:40; Admin Dose 17 GM; Start 10/04/18 at 09:00 Senna (Senokot) 1 tab HS PO Last administered on 10/14/18 21:04; Admin Dose 1 TAB; Start 10/03/18 at 21:00 Bisacodyl (Dulcolax Supp) 10 mg DAILY PRN [place] CONSTIPATION; Start 10/03/18 at 19:30 Tramadol HCl (Ultram) 50 mg Q4H PRN PO MODERATE PAIN LEVEL 4-6; Start 10/03/18 at 19:30 Acetaminophen/ Hydrocodone Bitart ([place] (5/325)) 1 tab Q4H PRN PO SEVERE PAIN LEVEL 7-10 Last administered on 10/07/18 10:28; Admin Dose 1 TAB; Start 10/03/18 at 19:30 Ferrous Sulfate (Ferrous Sulfate (Ec)) 325 mg BID PO Last administered on 10/15/18 08:58; Admin Dose 325 MG; Start 10/03/18 at 21:00 Ascorbic Acid (Vitamin C) 250 mg DAILY PO Last administered on 10/15/18 08:57; Admin Dose 250 MG; Start 10/04/18 at 15:00 Multivitamins Therapeutic (Theragran) 1 tab DAILY PO Last administered on 10/15/18 08:58; Admin Dose 1 TAB; Start 10/04/18 at 15:00 Folic Acid (Folic Acid) 1 mg DAILY PO Last administered on 10/15/18 08:58; Admin Dose 1 MG; Start 10/04/18 at 15:00 Zinc Sulfate (Zinc Sulfate) 220 mg DAILY PO Last administered on 10/15/18 08:57; Admin Dose 220 MG; Start 10/04/18 at 15:00 Enoxaparin Sodium (Lovenox) 40 mg DAILY SC Last administered on 10/15/18 08:51; Admin Dose 40 MG; Start 10/06/18 at 09:00 Amlodipine Besylate (Norvasc) 5 mg DAILY PO Last administered on 10/15/18 08:59; Admin Dose 5 MG; Start 10/06/18 at 16:30 Trazodone HCl (Desyrel) 25 mg QHS PO Last administered on 10/14/18 21:04; Admin Dose 25 MG; Start 10/06/18 at 21:00 Pregabalin (Lyrica) 50 mg QHS PO Last administered on 10/14/18 21:04; Admin Dose 50 MG; Start 10/10/18 at 21:00 Linezolid (Zyvox) 600 mg BID PO Last administered on 6/4/19at 08:58; Admin Dose 600 MG; Start 10/13/18 at 21:00 Assessment/Plan Additional Assessment/Plan Rehab- Right intertrochanteric hip fracture status post ORIF. Continue rehab treatment plan. Patient making steady gains ID- continue current antibiotics for UTI and superficial wound infection Hypertension. Anemia Acute on Chronic Kidney Disease Peripheral Vascular Disease Acute Pain Syndrome-improving Right buttock DTI and mid sacral moisture related fissure- continues to improve RONA FLOWERS MD Oct 15, 2018 13:50
[2018-10-15 14:00] VITALS: BP 132/60; PULSE 76; RESP 18
--- NOTE | 2018-10-15 14:50 | CONS ---
Assessment/Plan Assessment/Plan Hospital Course (Demo Recall) Patient is alert laying comfortably in bed and watching a TV she is in no distress denies pain. She is on oral Zyvox. Right hip drainage culture grew VRE and coag negative staph species urine culture also grew enterococcus species Patient has Ng catheter PHYSICAL EXAMINATION: GENERAL: This is a very pleasant obese elderly woman who is alert, in no distress. HEENT: Head is atraumatic, normocephalic. Sclerae are anicteric. NECK: Supple. CHEST: Rise is symmetrical. Breath sounds are clear. HEART: S1, S2. ABDOMEN: Soft. Bowel tones are present. EXTREMITIES: With bilateral lower edema, right hip and lower part of the leg. Dressing clean, dry and intact. I looked at the picture. The [place] are without erythema. DIAGNOSTIC IMPRESSION: This is a 77-year-old woman who is status post right total hip replacement with a culture from the drainage grew vancomycin-resistant Enterococcus. The patient also has an enterococcus growing in her urine that could be colonization secondary to Ng catheter. She is clinically and hemodynamically stable. We will continue her on oral Zyvox to complete 7 days Consultation Date/Type/Reason Admit Date/Time October 03, 2018 at 16:16 Initial Consult Date Type of Consult id Date/Time of Note DATE: 10/15/18 TIME: 14:49 Exam/Review of Systems Exam Vitals Vital Signs Date Temp Pulse Resp B/P (MAP) Pulse Ox O2 O2 Flow FiO2 Time Delivery Rate 10/15/18 98.9 80 18 109/58 98 Room Air 02:00 (75) Intake and Output 10/14/18 10/14/18 10/15/18 1414:59 22:59 06:59 IntakeIntake Total 500 ml 400 ml OutputOutput Total 750 ml 900 ml BalanceBalance -250 ml -500 ml Results Result Diagram: 10/13/1839 10/13/18638 Medications Medication Current Medications Miscellaneous Information (Pending [facility] Order For Wound Care) This patient walsh... PRN PRN XX WOUND CARE; Start 10/03/18 at 18:30 Pantoprazole (Protonix Tab) 40 mg DAILY@06 PO Last administered on 10/15/18at 06:35; Admin Dose 40 MG; Start 10/04/18 at 06:00 Hydralazine HCl (Apresoline) 25 mg Q4H PRN PO ELEVATED SYSTOLIC BP Last administered on 10/06/18 12:00; Admin Dose 25 MG; Start 10/03/18 at 19:30 Acetaminophen (Tylenol Tab) 650 mg Q4H PRN PO MILD PAIN(1-3)OR ELEVATED TEMP Last administered on 10/13/18 20:29; Admin Dose 650 MG; Start 10/03/18 at 19:30 Metoprolol Tartrate (Lopressor) 25 mg BID PO Last administered on 10/15/18 09:00; Admin Dose 25 MG; Start 10/03/18 at 21:00 Docusate Sodium (Colace) 100 mg BID PO Last administered on 10/14/18 21:04; Admin Dose 100 MG; Start 10/03/18 at 21:00 Polyethylene Glycol (Miralax) 17 gm DAILY PO Last administered on 10/14/18 08:40; Admin Dose 17 GM; Start 10/04/18 at 09:00 Senna (Senokot) 1 tab HS PO Last administered on 10/14/18 21:04; Admin Dose 1 TAB; Start 10/03/18 at 21:00 Bisacodyl (Dulcolax Supp) 10 mg DAILY PRN [place] CONSTIPATION; Start 10/03/18 at 19:30 Tramadol HCl (Ultram) 50 mg Q4H PRN PO MODERATE PAIN LEVEL 4-6; Start 10/03/18 at 19:30 Acetaminophen/ Hydrocodone Bitart ([place] (5/325)) 1 tab Q4H PRN PO SEVERE PAIN LEVEL 7-10 Last administered on 10/07/18 10:28; Admin Dose 1 TAB; Start 10/03/18 at 19:30 Ferrous Sulfate (Ferrous Sulfate (Ec)) 325 mg BID PO Last administered on 10/15/18 08:58; Admin Dose 325 MG; Start 10/03/18 at 21:00 Ascorbic Acid (Vitamin C) 250 mg DAILY PO Last administered on 10/15/18 08:57; Admin Dose 250 MG; Start 10/04/18 at 15:00 Multivitamins Therapeutic (Theragran) 1 tab DAILY PO Last administered on 9at 08:58; Admin Dose 1 TAB; Start 10/04/18 at 15:00 Folic Acid (Folic Acid) 1 mg DAILY PO Last administered on 10/15/18 08:58; Admin Dose 1 MG; Start 10/04/18 at 15:00 Zinc Sulfate (Zinc Sulfate) 220 mg DAILY PO Last administered on 10/15/18 08:57; Admin Dose 220 MG; Start 10/04/18 at 15:00 Enoxaparin Sodium (Lovenox) 40 mg DAILY SC Last administered on 10/15/18 08:51; Admin Dose 40 MG; Start 10/06/18 at 09:00 Amlodipine Besylate (Norvasc) 5 mg DAILY PO Last administered on 10/15/18 08:59; Admin Dose 5 MG; Start 10/06/18 at 16:30 Trazodone HCl (Desyrel) 25 mg QHS PO Last administered on 10/14/18 21:04; Admin Dose 25 MG; Start 10/06/18 at 21:00 Pregabalin (Lyrica) 50 mg QHS PO Last administered on 10/14/18 21:04; Admin Dose 50 MG; Start 10/10/18 at 21:00 Linezolid (Zyvox) 600 mg BID PO Last administered on 10/15/18 08:58; Admin Dose 600 MG; Start 10/13/18 at 21:00 JEANCARLOS GASTON NP Oct 15, 2018 14:49
[2018-10-15 20:55] VITALS: BP 116/87; PULSE 76; RESP 18
[2018-10-15] MEDS: SENNA TAB PO SCH (20:57)
[2018-10-15] MEDS: PREGABALIN 50 MG CAP PO SCH (20:57)
[2018-10-15] MEDS: traZODone 50 MG TAB PO SCH (20:57)
[2018-10-16] VITALS (8 sets, daily range): BP systolic 116–139; BP diastolic 56–64; PULSE 65–71; RESP 16–18
[2018-10-16] MEDS: PANTOPRAZOLE (EC) 40 MG TAB PO SCH (06:24)
[2018-10-16] MEDS: ACETAMINOPHEN 325 MG TAB PO PRN (08:46)
[2018-10-16] MEDS: ZINC SULFATE 220 MG CAP PO SCH (08:51)
[2018-10-16] MEDS: ZYVOX 600 MG TAB PO SCH ×2 (08:51→21:41)
[2018-10-16] MEDS: DOCUSATE SODIUM 100 MG CAP PO SCH ×2 (08:51→21:40)
[2018-10-16] MEDS: ASCORBIC ACID 250 MG TAB PO SCH (08:51)
[2018-10-16] MEDS: FERROUS SULFATE (EC) 325 MG TAB PO SCH ×2 (08:51→21:41)
[2018-10-16] MEDS: FOLIC ACID 1 MG TAB PO SCH (08:51)
[2018-10-16] MEDS: MULTIVITAMINS THERAPEUTIC TAB PO SCH (08:51)
[2018-10-16] MEDS: AMLODIPINE 5 MG TAB PO SCH (08:52)
[2018-10-16] MEDS: METOPROLOL 25 MG TAB PO SCH ×2 (08:52→21:42)
[2018-10-16] MEDS: POLYETHYLENE GLYCOL 17 GM PACKET PO SCH (08:52)
[2018-10-16] MEDS: ENOXAPARIN 40 MG/0.4 ML SYG SC SCH (09:02)
--- NOTE | 2018-10-16 13:22 | PN ---
Date/Time of Note Date/Time of Note DATE: 10/16/18 TIME: 13:20 Subjective Tired today Objective Vital Signs Date Temp Pulse Resp B/P (MAP) Pulse Ox O2 O2 Flow FiO2 Time Delivery Rate 10/16/18 97.6 65 18 126/56 98 Room Air 08:53 (79) Intake and Output 10/15/18 10/15/18 10/16/18 1515:00 23:00 07:00 IntakeIntake Total 240 ml 700 ml 200 ml OutputOutput Total 780 ml 800 ml BalanceBalance 240 ml -80 ml -600 ml Exam pulm-cta mod transfer Results/Medications Result Diagram: 10/16/18 0640 10/16/18 0640 Results 24 hrs Laboratory Tests Test 10/16/18 06:40 White Blood Count 7.3 # Red Blood Count 2.65 L Hemoglobin 7.9 L Hematocrit 25.5 L Mean Corpuscular Volume 96.2 Mean Corpuscular Hemoglobin 29.8 Mean Corpuscular Hemoglobin Concent 31.0 L Red Cell Distribution Width 14.1 Platelet Count 332 Mean Platelet Volume 10.5 H Immature Granulocytes % 1.500 H Neutrophils % 48.9 Lymphocytes % 30.9 Monocytes % 15.2 H Eosinophils % 2.8 Basophils % 0.7 Nucleated Red Blood Cells % 0.0 Immature Granulocytes # 0.110 H Neutrophils # 3.6 Lymphocytes # 2.2 Monocytes # 1.1 H Eosinophils # 0.2 Basophils # 0.1 Nucleated Red Blood Cells # 0.0 Sodium Level 136 Potassium Level 4.6 Chloride Level 105 Carbon Dioxide Level 25 Anion Gap 6 Blood Urea Nitrogen 22 H Creatinine 1.45 H Est Glomerular Filtrat Rate mL/min Glucose Level 89 Calcium Level 9.3 Phosphorus Level 4.9 Magnesium Level 1.8 Medications Current Medications Miscellaneous Information (Pending [facility] Order For Wound Care) This patient walsh... PRN PRN XX WOUND CARE; Start 10/03/18 at 18:30 Pantoprazole (Protonix Tab) 40 mg DAILY@06 PO Last administered on 10/16/18at 06: 24; Admin Dose 40 MG; Start 10/04/18 at 06:00 Hydralazine HCl (Apresoline) 25 mg Q4H PRN PO ELEVATED SYSTOLIC BP Last administered on 10/06/18at 12:00; Admin Dose 25 MG; Start 10/03/18 at 19:30 Acetaminophen (Tylenol Tab) 650 mg Q4H PRN PO MILD PAIN(1-3)OR ELEVATED TEMP Last administered on 10/16/18 08:46; Admin Dose 650 MG; Start 10/03/18 at 19:30 Metoprolol Tartrate (Lopressor) 25 mg BID PO Last administered on 10/16/18 08:52; Admin Dose 25 MG; Start 10/03/18 at 21:00 Docusate Sodium (Colace) 100 mg BID PO Last administered on 10/16/18 08:51; Admin Dose 100 MG; Start 10/03/18 at 21:00 Polyethylene Glycol (Miralax) 17 gm DAILY PO Last administered on 10/14/18 08:40; Admin Dose 17 GM; Start 10/04/18 at 09:00 Senna (Senokot) 1 tab HS PO Last administered on 10/15/18 20:57; Admin Dose 1 TAB; Start 10/03/18 at 21:00 Bisacodyl (Dulcolax Supp) 10 mg DAILY PRN [place] CONSTIPATION; Start 10/03/18 at 19:30 Tramadol HCl (Ultram) 50 mg Q4H PRN PO MODERATE PAIN LEVEL 4-6; Start 10/03/18 at 19:30 Acetaminophen/ Hydrocodone Bitart ([place] (5/325)) 1 tab Q4H PRN PO SEVERE PAIN LEVEL 7-10 Last administered on 10/07/18 10:28; Admin Dose 1 TAB; Start 10/03/18 at 19:30 Ferrous Sulfate (Ferrous Sulfate (Ec)) 325 mg BID PO Last administered on 10/16/18 08:51; Admin Dose 325 MG; Start 10/03/18 at 21:00 Ascorbic Acid (Vitamin C) 250 mg DAILY PO Last administered on 10/16/18 08:51; Admin Dose 250 MG; Start 10/04/18 at 15:00 Multivitamins Therapeutic (Theragran) 1 tab DAILY PO Last administered on 10/16/18 08:51; Admin Dose 1 TAB; Start 10/04/18 at 15:00 Folic Acid (Folic Acid) 1 mg DAILY PO Last administered on 10/16/18 08:51; Admin Dose 1 MG; Start 10/04/18 at 15:00 Zinc Sulfate (Zinc Sulfate) 220 mg DAILY PO Last administered on 10/16/18 08:51; Admin Dose 220 MG; Start 10/04/18 at 15:00 Enoxaparin Sodium (Lovenox) 40 mg DAILY SC Last administered on 10/16/18 09:02; Admin Dose 40 MG; Start 10/06/18 at 09:00 Amlodipine Besylate (Norvasc) 5 mg DAILY PO Last administered on 10/16/18 08:52; Admin Dose 5 MG; Start 10/06/18 at 16:30 Trazodone HCl (Desyrel) 25 mg QHS PO Last administered on 10/15/18 20:57; Admin Dose 25 MG; Start 10/06/18 at 21:00 Pregabalin (Lyrica) 50 mg QHS PO Last administered on 10/15/18 20:57; Admin Dose 50 MG; Start 10/10/18 at 21:00 Linezolid (Zyvox) 600 mg BID PO Last administered on 10/16/18 08:51; Admin Dose 600 MG; Start 10/13/18 at 21:00 Assessment/Plan Additional Assessment/Plan Rehab- Right intertrochanteric hip fracture status post ORIF. Continue rehab activities as tolerated Hypertension. Anemia- monitor Acute on Chronic Kidney Disease Peripheral Vascular Disease Acute Pain Syndrome-improving Right buttock DTI and mid sacral moisture related fissure- continues to improve RONA FLOWERS MD Oct 16, 2018 13:22
[2018-10-16] MEDS ORDERED: ACETAMINOPHEN 325 MG TAB PO ONE (13:30)
[2018-10-16] MEDS: SENNA TAB PO SCH (21:41)
[2018-10-16] MEDS: traZODone 50 MG TAB PO SCH (21:42)
[2018-10-16] MEDS: PREGABALIN 50 MG CAP PO SCH (21:42)
[2018-10-17 02:00] VITALS: BP 128/62; PULSE 64; RESP 18
[2018-10-17] MEDS: PANTOPRAZOLE (EC) 40 MG TAB PO SCH (06:12)
--- NOTE | 2018-10-17 06:24 | PN ---
DATE: 10/16/2018 SUBJECTIVE: Patient seemed more weak today, difficult to participate with therapy. Her hemoglobin r emains low at 7.9. Will transfuse her 1 unit of PRBC and see if she has more energy to participate w ith therapy. The patient may need to be transferred to a [facility] facility for ongoing therap y. I discussed with staff. PHYSICAL EXAMINATION: VITAL SIGNS: Temperature 97.6, pulse 65, respiration 18, blood pressure 126/56, saturation 98%. GENERAL: No acute distress. Patient is pale. CARDIOVASCULAR: S1, S2, regular rate. LUNGS: Clear. ABDOMEN: Soft, nontender. EXTREMITIES: Trace nonpitting edema of the lower extremity, right hip and knee wounds intact. No si gnificant drainage. LABORATORY DATA: White count 7.3, hemoglobin 7.0, hematocrit 26, platelet count of 332, neutrophils 49%, lymphocytes 21%. Chemistry: Sodium 136, potassium 4.6, ____ bicarbonate 25, BUN is 22, creatin ine 1.45, glucose of 89. Blood cultures negative. Urine culture shows enterococcus species and woun d culture shows coagulase negative staph and VRE. CURRENT MEDICATIONS: Reviewed. 1. Zyvox 600 b.i.d. 2. Lyrica 50 at bedtime. 3. Trazodone 25 at bedtime. 4. Norvasc 10 mg daily. 5. Lovenox 40 mg subq daily. 6. Vitamin C 250 daily. 7. Multivitamins one tab daily. 8. Folic acid ____ daily. 9. Zinc sulfate 220 daily. 10. MiraLax 17 grams daily. 11. Protonix 40 mg daily. 12. Lopressor 25 b.i.d. 13. Colace 100 b.i.d. 14. Senna 1 tab at bedtime. 15. Ferrous sulfate 325 b.i.d. 16. Hydralazine. 17. Tylenol. 18. Dulcolax. 19. ____ 20. [place] p.r.n. ASSESSMENT AND PLAN: This is a 77-year-old female with history of hypertension, chron ic kidney disease, peripheral vascular disease, peripheral edema, osteoarthritis, status post ground level fall, was found to have right hip fracture, status post repair. 1. Status post right hip fracture. Continue physical therapy, occupational therapy, help with activ ities of daily living, pain control. 2. Post-surgical anemia, on iron supplements. Will transfuse 1 unit of PRBC due to ongoing weakness . 3. Urinary tract infection. 4. Right hip wound, on Zyvox. 5. Hypertension, controlled. Continue Lovenox. No evidence of active bleeding. 6. Continue gastrointestinal prophylaxis with Protonix. 7. Maximum nutrition support. 8. DTI in the sacrum, offloading, air mattress bed and vitamins. Ng in place. 9. Acute on chronic renal insufficiency. Observe. Avoid nephrotoxic medication. Monitor electroly laver[place]. 10. Possible transfer to a [facility] facility as discussed with staff. We will follow again a nd see how she does post-transfusion. Dictated By: MANUEL GRACIA/EMMA Conf#: [id number] DID#: [id number]
[2018-10-17] MEDS: POLYETHYLENE GLYCOL 17 GM PACKET PO SCH (09:00)
[2018-10-17 09:28] VITALS: BP 113/55; PULSE 71; RESP 18
[2018-10-17] MEDS: FOLIC ACID 1 MG TAB PO SCH (09:31)
[2018-10-17] MEDS: FERROUS SULFATE (EC) 325 MG TAB PO SCH ×2 (09:31→20:44)
[2018-10-17] MEDS: MULTIVITAMINS THERAPEUTIC TAB PO SCH (09:31)
[2018-10-17] MEDS: DOCUSATE SODIUM 100 MG CAP PO SCH ×2 (09:31→20:48)
[2018-10-17] MEDS: ASCORBIC ACID 250 MG TAB PO SCH (09:31)
[2018-10-17] MEDS: ZINC SULFATE 220 MG CAP PO SCH (09:31)
[2018-10-17] MEDS: ZYVOX 600 MG TAB PO SCH ×2 (09:31→20:45)
[2018-10-17] MEDS: METOPROLOL 25 MG TAB PO SCH ×2 (09:32→20:44)
[2018-10-17] MEDS: AMLODIPINE 5 MG TAB PO SCH (09:33)
[2018-10-17] MEDS: ENOXAPARIN 40 MG/0.4 ML SYG SC SCH (10:05)
--- NOTE | 2018-10-17 12:26 | DS ---
Date/Time of Note Date/Time of Note DATE: 10/17/18 TIME: 12:24 Discharge Summary Admission/Discharge Info Admit Date/Time October 03, 2018 at 16:16 Discharge Date/Time Discharge Diagnosis 1. Right intertrochanteric hip fracture status post ORIF. 2. Hypertension. 3. Anemia, s/p transfusion 4. Chronic Kidney Disease 5. Peripheral Vascular Disease 6. Right buttock DTI-healed; and mid sacral moisture related fissure nearly healed 7. Improvements in self-care and mobility. Patient Condition: Good Hospital Course The patient was admitted for comprehensive interdisciplinary rehabilitation and made steady functional gains from a Max level to a mod level for self care tasks and mobility. Patient was followed closely for medical issues including UTI and cellulitis requiring antibiotics, in addition to anemia requiring transfusion.and now is ready to discharge to a lower level of care. The DC meds are per the medication reconciliation sheet. The patient will follow up with PMD upon DC. Primary Care Provider Not On Staff Doctor Pending Labs Laboratory Tests Test 10/17/18 08:12 White Blood Count 5.6 10^3/ul (4.8-10.8) Red Blood Count 3.32 10^6/ul (4.20-5.40) Hemoglobin 9.8 g/dl (12.0-16.0) Hematocrit 31.3 % (37.0-47.0) Mean Corpuscular Volume 94.3 fl (82.0-101.0) Mean Corpuscular Hemoglobin 29.5 pg (29.0-33.0) Mean Corpuscular Hemoglobin Concent 31.3 g/dl (32.0-37.0) Red Cell Distribution Width 15.1 % (11.5-14.5) Platelet Count 358 10^3/UL (140-415) Mean Platelet Volume 10.4 fl (7.4-10.4) Immature Granulocytes % 1.300 % (0.001-0.429) Neutrophils % 45.9 % (39.0-77.0) Lymphocytes % 35.8 % (15.0-51.0) Monocytes % 11.9 % (0.0-11.0) Eosinophils % 4.0 % (0.0-7.0) Basophils % 1.1 % (0.0-2.0) Nucleated Red Blood Cells % 0.0 /100WBC (0.0-0.0) Immature Granulocytes # 0.070 10^3/ul (0.0-0.031) Neutrophils # 2.6 10^3/ul (1.6-7.5) Lymphocytes # 2.0 10^3/ul (0.8-2.9) Monocytes # 0.7 10^3/ul (0.3-0.9) Eosinophils # 0.2 10^3/ul (0.0-0.5) Basophils # 0.1 10^3/ul (0.0-0.1) Nucleated Red Blood Cells # 0.0 10^3/ul (0.0-0.0) Sodium Level 138 mmol/L (135-144) Potassium Level 4.3 mmol/L (3.5-5.1) Chloride Level 105 mmol/L (97-110) Carbon Dioxide Level 24 mmol/L (21-31) Anion Gap 9 (5-13) Blood Urea Nitrogen 28 mg/dl (7-20) Creatinine 1.52 mg/dl (0.44-1.00) Est Glomerular Filtrat Rate mL/min mL/min (>60) Glucose Level 98 mg/dl (70-220) Calcium Level 9.4 mg/dl (8.4-10.2) Phosphorus Level 5.0 mg/dl (2.5-4.9) Magnesium Level 1.9 mg/dl (1.7-2.5) RONA FLOWERS MD Oct 17, 2018 12:26
--- NOTE | 2018-10-17 14:56 | PN ---
DATE: 10/17/2018 SUBJECTIVE: The patient was seen, sitting in a wheelchair overall comfortable with no complaints, st atus post 1 unit of PRBC. H and H corrected nicely from 7.8 to 9.8. The patient is feeling better a fter transfusion and plan for discharge is in progress. PHYSICAL EXAMINATION: VITAL SIGNS: Temperature 97.9, pulse 71, respirations 18, blood pressure 113/55, saturation 97% on r oom air. GENERAL: No acute distress, obese, pale. CARDIOVASCULAR: S1, S2. Regular rate. LUNGS: Clear. ABDOMEN: Soft, nontender. EXTREMITIES: Right lower extremity is slightly bigger than the left with no significant edema. LABORATORY DATA: White count 5.6, hemoglobin 9.8, hematocrit 31, platelet count of 358, neutrophils 46%, lymphs 36%. Chemistry: Sodium 138, potassium is 4.3, chloride 105, bicarbonate 24, BUN is 28, creatinine 1.52 slightly higher today. DIAGNOSTIC DATA: Hip x-ray was done as well, which shows satisfactory postoperative images of the ri ght hip. MEDICATIONS: 1. Zyvox 600 b.i.d. 2. Lyrica 50 mg at bedtime. 3. Trazodone 25 at bedtime. 4. Norvasc 5 mg daily. 5. Lovenox 40 mg subcutaneously daily. 6. Vitamin C 250 daily. 7. Multivitamin 1 tablet daily. 8. Folic acid 1 mg daily. 9. Zinc sulfate 220 daily. 10. MiraLax 17 grams daily. 11. Protonix 40 mg daily. 12. Lopressor 25 b.i.d. 13. Colace 100 b.i.d. 14. Senna 1 tab daily. 15. Ferrous sulfate 325 b.i.d. 16. Hydralazine p.r.n. 17. Tylenol p.r.n. 18. Dulcolax p.r.n. 19. [place]. 20. Ultram p.r.n. ASSESSMENT AND PLAN: This is a 77-year-old female with history of hypertension, chron ic kidney, peripheral vascular disease, peripheral edema, osteoarthritis status post right hip surger y, status post fall. 1. Status post right hip fracture. Continue physical therapy, occupational therapy to help with act ivities of daily living, pain control. 2. Postsurgical anemia, status post transfusion. Remains on iron supplements. 3. Urinary tract infection, on Zyvox. 4. Right hip wound as well on Zyvox. Duration of antibiotics per ID. 5. Hypertension, controlled. Continue Lovenox for deep venous thrombosis prophylaxis. 6. Continue gastrointestinal prophylaxis with Protonix. 7. Maximize nutritional support. 8. Deep tissue injury in the sacrum. Offloading, vitamins, air mattress. Still has a Ng due to h er sacral wound again, currently being treated for urinary tract infection. 9. Discharge planning is in progress, either home with home health or to a shelter facility for ongoing therapy. The patient is improving slowly. Dictated By: MANUEL GRACIA/EMMA Conf#: [id number] DID#: [id number] CC: RONA FLOWERS MD;*EndCC*
[2018-10-17 20:40] VITALS: BP 119/64; PULSE 73; RESP 18
[2018-10-17] MEDS: PREGABALIN 50 MG CAP PO SCH (20:44)
[2018-10-17] MEDS: traZODone 50 MG TAB PO SCH (20:44)
[2018-10-17] MEDS: SENNA TAB PO SCH (20:48)
[2018-10-18 04:15] VITALS: BP 126/57; PULSE 85; RESP 18
[2018-10-18] MEDS: ACETAMINOPHEN 325 MG TAB PO PRN (04:17)
[2018-10-18] MEDS: PANTOPRAZOLE (EC) 40 MG TAB PO SCH (06:02)
[2018-10-18] MEDS: DOCUSATE SODIUM 100 MG CAP PO SCH (09:00)
[2018-10-18] MEDS: POLYETHYLENE GLYCOL 17 GM PACKET PO SCH (09:00)
[2018-10-18] MEDS: ZINC SULFATE 220 MG CAP PO SCH (09:51)
[2018-10-18] MEDS: FOLIC ACID 1 MG TAB PO SCH (09:51)
[2018-10-18] MEDS: ASCORBIC ACID 250 MG TAB PO SCH (09:51)
[2018-10-18] MEDS: ZYVOX 600 MG TAB PO SCH (09:51)
[2018-10-18] MEDS: MULTIVITAMINS THERAPEUTIC TAB PO SCH (09:51)
[2018-10-18] MEDS: FERROUS SULFATE (EC) 325 MG TAB PO SCH (09:51)
[2018-10-18] MEDS: METOPROLOL 25 MG TAB PO SCH (09:54)
[2018-10-18] MEDS: AMLODIPINE 5 MG TAB PO SCH (09:54)
[2018-10-18] MEDS: ENOXAPARIN 40 MG/0.4 ML SYG SC SCH (10:03)
--- NOTE | 2018-10-18 10:59 | PN ---
Date/Time of Note Date/Time of Note DATE: 10/18/18 TIME: 10:57 Subjective SW working on planning no new complaints Objective Vital Signs Date Temp Pulse Resp B/P (MAP) Pulse Ox O2 O2 Flow FiO2 Time Delivery Rate 10/18/18 98.1 85 18 126/57 96 Room Air 04:15 (80) Intake and Output 10/17/18 10/17/18 10/18/18 1515:00 23:00 07:00 IntakeIntake Total 240 ml 600 ml 450 ml OutputOutput Total 1200 ml 350 ml 650 ml BalanceBalance -960 ml 250 ml -200 ml Exam mod transfer pulm-cta Results/Medications Result Diagram: 10/17/18 0812 10/17/18 0812 Medications Current Medications Miscellaneous Information (Pending [facility] Order For Wound Care) This patient walsh... PRN PRN XX WOUND CARE; Start 10/03/18 at 18:30 Pantoprazole (Protonix Tab) 40 mg DAILY@06 PO Last administered on 10/18/18 06:02; Admin Dose 40 MG; Start 10/04/18 at 06:00 Hydralazine HCl (Apresoline) 25 mg Q4H PRN PO ELEVATED SYSTOLIC BP Last administered on 10/06/18 12:00; Admin Dose 25 MG; Start 10/03/18 at 19:30 Acetaminophen (Tylenol Tab) 650 mg Q4H PRN PO MILD PAIN(1-3)OR ELEVATED TEMP Last administered on 10/18/18 04:17; Admin Dose 650 MG; Start 10/03/18 at 19:30 Metoprolol Tartrate (Lopressor) 25 mg BID PO Last administered on 10/18/18 09:54; Admin Dose 25 MG; Start 10/03/18 at 21:00 Docusate Sodium (Colace) 100 mg BID PO Last administered on 10/17/18 09:31; Admin Dose 100 MG; Start 10/03/18 at 21:00 Polyethylene Glycol (Miralax) 17 gm DAILY PO Last administered on 10/14/18 08:40; Admin Dose 17 GM; Start 10/04/18 at 09:00 Senna (Senokot) 1 tab HS PO Last administered on 10/16/18 21:41; Admin Dose 1 TAB; Start 10/03/18 at 21:00 Bisacodyl (Dulcolax Supp) 10 mg DAILY PRN [place] CONSTIPATION; Start 10/03/18 at 19:30 Tramadol HCl (Ultram) 50 mg Q4H PRN PO MODERATE PAIN LEVEL 4-6; Start 10/03/18 at 19:30 Acetaminophen/ Hydrocodone Bitart ([place] (5/325)) 1 tab Q4H PRN PO SEVERE PAIN LEVEL 7-10 Last administered on 10/07/18 10:28; Admin Dose 1 TAB; Start 10/03/18 at 19:30 Ferrous Sulfate (Ferrous Sulfate (Ec)) 325 mg BID PO Last administered on 10/18/18 09:51; Admin Dose 325 MG; Start 10/03/18 at 21:00 Ascorbic Acid (Vitamin C) 250 mg DAILY PO Last administered on 10/18/18 09:51; Admin Dose 250 MG; Start 10/04/18 at 15:00 Multivitamins Therapeutic (Theragran) 1 tab DAILY PO Last administered on 10/18/18 09:51; Admin Dose 1 TAB; Start 10/04/18 at 15:00 Folic Acid (Folic Acid) 1 mg DAILY PO Last administered on 10/18/18 09:51; Admin Dose 1 MG; Start 10/04/18 at 15:00 Zinc Sulfate (Zinc Sulfate) 220 mg DAILY PO Last administered on 10/18/18 09:51; Admin Dose 220 MG; Start 10/04/18 at 15:00 Enoxaparin Sodium (Lovenox) 40 mg DAILY SC Last administered on 10/18/18 10:03; Admin Dose 40 MG; Start 10/06/18 at 09:00 Amlodipine Besylate (Norvasc) 5 mg DAILY PO Last administered on 10/18/18 09:54; Admin Dose 5 MG; Start 10/06/18 at 16:30 Trazodone HCl (Desyrel) 25 mg QHS PO Last administered on 10/17/18 20:44; Admin Dose 25 MG; Start 10/06/18 at 21:00 Pregabalin (Lyrica) 50 mg QHS PO Last administered on 10/17/18 20:44; Admin Dose 50 MG; Start 10/10/18 at 21:00 Linezolid (Zyvox) 600 mg BID PO Last administered on 6/7/19at 09:51; Admin Dose 600 MG; Start 10/13/18 at 21:00 Assessment/Plan Additional Assessment/Plan Rehab- Right intertrochanteric hip fracture status post ORIF. Steady progress. DC planning in Hypertension. Anemia Acute on Chronic Kidney Disease Peripheral Vascular Disease Acute Pain Syndrome Right buttock DTI and mid sacral moisture related fissure- improving RONA FLOWERS MD Oct 18, 2018 10:59
--- NOTE | 2018-10-18 17:10 | PN ---
DATE: 10/18/2018 SUBJECTIVE: The patient was seen. The patient is planned to be discharged today to the [facility] for ongoing physical therapy and care. The patient is complaining of slight heaviness a t the hip area and felt slightly dizzy to participate with physical therapy today. Otherwise, no acu te event. PHYSICAL EXAMINATION: VITAL SIGNS: Temperature 98.3, pulse is 85, respirations 18, blood pressure 126/57, saturation 96%. GENERAL: The patient is in no acute distress. HEENT: Normocephalic, atraumatic, pale. CARDIOVASCULAR: S1, S2, regular rate. LUNGS: Clear. ABDOMEN: Soft, nontender. EXTREMITIES: Right lower extremity is slightly bigger than the left as patient had surgery in the [facility] hip. LABORATORY DATA: No new labs today. MEDICATIONS: 1. Zyvox 600 p.o. b.i.d. 2. Lyrica 50 mg at bedtime. 3. Trazodone 25 at bedtime. 4. Norvasc 5 mg daily. 5. Lovenox 40 mg subcutaneously daily. 6. Vitamin C 250 daily. 7. Multivitamin 1 tab daily. 8. Folic acid 1 mg daily. 9. Zinc sulfate 220 daily. 10. MiraLax 17 grams daily. 11. Protonix 40 mg daily. 12. Lopressor 25 b.i.d. 13. Colace 100 b.i.d. 14. Senna 1 tab at bedtime. 15. Ferrous sulfate 325 b.i.d. 16. Hydralazine p.r.n. 17. Tylenol p.r.n. 18. Dulcolax p.r.n. 19. Ultram p.r.n. 20. [place] p.r.n. ASSESSMENT AND PLAN: This is a 77-year-old female with history of hypertension, chron ic kidney disease, peripheral vascular disease, peripheral edema, osteoarthritis status post right hi p surgery, status post fall. 1. Status post right hip fracture. Continue physical therapy, occupational therapy to help with act ivities of daily living. Pain control is being provided. The patient is to continue her care at the care home facility at [facility]. 2. Postsurgical anemia, status post transfusion. Continue iron supplement. 3. Urinary tract infection. Has been on Zyvox, also for wound superficial infection. ID per Dr. Dr gtz. In the meantime, we will continue it. 4. Hypertension, controlled with above meds. 5. Continue Lovenox for deep venous thrombosis prophylaxis. 6. Continue gastrointestinal prophylaxis with Protonix. 7. Maximum nutrition support. 8. Deep tissue injury in the sacrum. Offloading, vitamins, air mattress bed. Discharge planning for today. We will continue to monitor her progress at the care home [facility]. Case was discussed with staff. Dictated By: MANUEL GRACIA/NTS Conf#: [id number] DID#: [id number] CC: RONA FLOWERS MD;*EndCC*
--- NOTE | 2018-10-18 18:34 | CONS ---
Assessment/Plan Assessment/Plan Hospital Course (Demo Recall) 1300 Patient is alert laying comfortably in bed no fevers, still has Ng, hip dsg intact Abx: Zyvox PHYSICAL EXAMINATION: GENERAL: This is a very pleasant obese elderly woman who is alert, in no distress. HEENT: Head is atraumatic, normocephalic. Sclerae are anicteric. NECK: Supple. CHEST: Rise is symmetrical. Breath sounds are clear. HEART: S1, S2. ABDOMEN: Soft. Bowel tones are present. EXTREMITIES: With bilateral lower edema, right hip and lower part of the leg. Dressing clean, dry and intact. I looked at the picture. The [place] are without erythema. DIAGNOSTIC IMPRESSION: This is a 77-year-old woman who is status post right total hip replacement with a culture from the drainage grew vancomycin-resistant Enterococcus. The patient also has an enterococcus growing in her urine that could be colonization secondary to Ng catheter. She is clinically and hemo dynamically stable. Continue her on oral Zyvox to complete 7 days==> last dose tomorrow [facility] staff Consultation Date/Type/Reason Admit Date/Time October 03, 2018 at 16:16 Initial Consult Date Type of Consult id Date/Time of Note DATE: 10/18/18 TIME: 18:33 Exam/Review of Systems Exam Vitals Vital Signs Date Temp Pulse Resp B/P (MAP) Pulse Ox O2 O2 Flow FiO2 Time Delivery Rate 10/18/18 98.1 85 18 126/57 96 Room Air 04:15 (80) Intake and Output 10/17/18 10/17/18 10/18/18 1515:00 23:00 07:00 IntakeIntake Total 240 ml 600 ml 450 ml OutputOutput Total 1200 ml 350 ml 650 ml BalanceBalance -960 ml 250 ml -200 ml Results Result Diagram: 10/17/18 0812 10/17/18 0812 Medications Medication Current Medications Miscellaneous Information (Pending [facility] Order For Wound Care) This patient walsh... PRN PRN XX WOUND CARE; Start 10/03/18 at 18:30 Pantoprazole (Protonix Tab) 40 mg DAILY@06 PO Last administered on 10/18/18at 06:02; Admin Dose 40 MG; Start 10/04/18 at 06:00 Hydralazine HCl (Apresoline) 25 mg Q4H PRN PO ELEVATED SYSTOLIC BP Last adminis tered on 10/06/18 12:00; Admin Dose 25 MG; Start 10/03/18 at 19:30 Acetaminophen (Tylenol Tab) 650 mg Q4H PRN PO MILD PAIN(1-3)OR ELEVATED TEMP Last administered on 10/18/18 04:17; Admin Dose 650 MG; Start 10/03/18 at 19:30 Metoprolol Tartrate (Lopressor) 25 mg BID PO Last administered on 10/18/18 09:54; Admin Dose 25 MG; Start 10/03/18 at 21:00 Docusate Sodium (Colace) 100 mg BID PO Last administered on 10/17/18 09:31; Admin Dose 100 MG; Start 10/03/18 at 21:00 Polyethylene Glycol (Miralax) 17 gm DAILY PO Last administered on 10/14/18 08:40; Admin Dose 17 GM; Start 10/04/18 at 09:00 Senna (Senokot) 1 tab HS PO Last administered on 10/16/18 21:41; Admin Dose 1 TAB; Start 10/03/18 at 21:00 Bisacodyl (Dulcolax Supp) 10 mg DAILY PRN MA CONSTIPATION; Start 10/03/18 at 19:30 Tramadol HCl (Ultram) 50 mg Q4H PRN PO MODERATE PAIN LEVEL 4-6; Start 10/03/18 at 19:30 Acetaminophen/ Hydrocodone Bitart ([place] (5/325)) 1 tab Q4H PRN PO SEVERE PAIN LEVEL 7-10 Last administered on 10/07/18 10:28; Admin Dose 1 TAB; Start 10/03/18 at 19:30 Ferrous Sulfate (Ferrous Sulfate (Ec)) 325 mg BID PO Last administered on 10/18/18 09:51; Admin Dose 325 MG; Start 10/03/18 at 21:00 Ascorbic Acid (Vitamin C) 250 mg DAILY PO Last administered on 10/18/18 09:51; Admin Dose 250 MG; Start 10/04/18 at 15:00 Multivitamins Therapeutic (Theragran) 1 tab DAILY PO Last administered on 10/18/18 09:51; Admin Dose 1 TAB; Start 10/04/18 at 15:00 Folic Acid (Folic Acid) 1 mg DAILY PO Last administered on 10/18/18 09:51; Admin Dose 1 MG; Start 10/04/18 at 15:00 Zinc Sulfate (Zinc Sulfate) 220 mg DAILY PO Last administered on 10/18/18 09:51; Admin Dose 220 MG; Start 10/04/18 at 15:00 Enoxaparin Sodium (Lovenox) 40 mg DAILY SC Last administered on 10/18/18 10:03; Admin Dose 40 MG; Start 10/06/18 at 09:00 Amlodipine Besylate (Norvasc) 5 mg DAILY PO Last administered on 10/18/18 09:54; Admin Dose 5 MG; Start 10/06/18 at 16:30 Trazodone HCl (Desyrel) 25 mg QHS PO Last administered on 10/17/18 20:44; Admin Dose 25 MG; Start 10/06/18 at 21:00 Pregabalin (Lyrica) 50 mg QHS PO Last administered on 10/17/18 20:44; Admin Dose 50 MG; Start 10/10/18 at 21:00 Linezolid (Zyvox) 600 mg BID PO Last administered on 10/18/18 09:51; Admin Dose 600 MG; Start 10/13/18 at 21:00; Stop 10/20/18 at 21:00 JEANCARLOS GASTON NP Oct 18, 2018 18:34
== END 2018-10-18 16:25 | DRG 560 ==
LOC: VRC 16:16
PROVIDERS: ADMIT Internal Medicine; ATTEND Physical Medicine & Rehabilitation
PROC: F07Z5ZZ Bed Mobility Treatment (ICD-10-PCS; principal; 2018-10-03)
PROC: F08Z2ZZ Grooming/Personal Hygiene Treatment (ICD-10-PCS; 2018-10-03)
PROC: 30233N1 Transfusion of Nonautologous Red Blood Cells into Peripheral Vein, Percutaneous Approach (ICD-10-PCS; 2018-10-16)
DX: S72.001D Fracture of unspecified part of neck of right femur, subsequent encounter for closed fracture with routine healing (principal); M86.9 Osteomyelitis, unspecified; N17.9 Acute kidney failure, unspecified; D62 Acute posthemorrhagic anemia; N39.0 Urinary tract infection, site not specified; G89.18 Other acute postprocedural pain; S30.0XXA Contusion of lower back and pelvis, initial encounter; I12.9 Hypertensive chronic kidney disease with stage 1 through stage 4 chronic kidney disease, or unspecified chronic kidney disease; N18.9 Chronic kidney disease, unspecified; I73.9 Peripheral vascular disease, unspecified; Z98.890 Other specified postprocedural states; E66.9 Obesity, unspecified; M19.91 Primary osteoarthritis, unspecified site; K21.9 Gastro-esophageal reflux disease without esophagitis; G47.00 Insomnia, unspecified; Z68.34 Body mass index [BMI] 34.0-34.9, adult; L89.152 Pressure ulcer of sacral region, stage 2
CPT/HCPCS: 36430; 73510; 80048; 80053; 81001; 83735; 84100; 85025; 86850; 86900; 86901; 86920; 87070; 87081; 87086; 93970; 97110; 97112; 97116; 97163; 97166; 97530; 97535; 97542; J0696; J1650; J2543; J3370; J7050; P9016